=== PATIENT | male | born 1950 | race Caucasian/White ===

== ENCOUNTER 2019-07-01 13:05 | Inpatient (IN) | payer MEDICARE, SELFPAY ==
--- NOTE | ~2019-07-01 | MR_ITS ---
EXAMINATION: MR brain/brain stem wo/w con EXAM DATE: 07/02/2019 09:02 INDICATION: TECHNIQUE: Magnetic resonance imaging (MRI) of the brain/brain stem obtained without contrast. Sagit mitchell T1, axial diffusion, gradient echo (T2*), T1, T2, FLAIR sequences obtained. Patient was then inj ected with 16 cc intravenous Multihance contrast. Axial and coronal postcontrast T1 weighted sequence s obtained. Correlation is made to head CT from 07/01/2019. FINDINGS: There is small acute lacunar infarction in the left periventricular white matter, posterior limb of the internal capsule. There is moderate-sized old infarction in the right frontal lobe. Some dilated perivascular spaces. There is left choroidal fissure cyst. Mild microangiopathy and cerebral atrophy. There is no acute hemorrhage seen on the T2*, a hemosiderin sensitive sequence. No intrapa renchymal brain mass. The ventricles are normal in size. There are no extra-axial collections. Flow voids are seen in the cerebral arteries on the T2-weighted sequences consistent with their expected patency. The orbits are unremarkable. Soft tissue is unremarkable. There are no areas of abnormal enhancement on the postcontrast images. IMPRESSION: 1. Small acute left-sided lacunar infarction. 2. Moderate-sized old right frontal lobe infarction. 3. Mild age-related findings. Reviewed, dictated and finalized at location A. SECURITY
--- NOTE | ~2019-07-01 | CT_ITS ---
EXAMINATION: CT brain wo con DATE: 07/01/2019 13:29 INDICATION: Slurred speech. Right leg weakness. TECHNIQUE: Computed tomography (CT) of the head was performed without intravenous contrast. Sagittal and coronal reconstructions were performed. The mA was adjusted according to patient size. Iterative reconstruction technique was employed. The dose-length product was 605.33 mGy-cm. COMPARISON: None FINDINGS: Age-indeterminate small scalp hematoma at the vertex. No fracture. Small to moderate sized region of encephalomalacia in the right frontal lobe consistent with chronic infarct. No acute intracranial hem orrhage, acute infarction or abnormal extra axial fluid collection. Dominant Virchow-Gilson space at t he inferior aspect of the left basal ganglia. There is mild scattered white matter hypoattenuation co nsistent with chronic small vessel ischemic disease. Ventricles are normal and symmetric. No mass/ma ss effect. The orbits, paranasal sinuses and mastoid air cells are normal. Small amount of intracrani al calcified cerebral atherosclerosis is noted at the carotid siphons. IMPRESSION: 1. No acute intracranial process. 2. Small to moderate-sized chronic right frontal lobe infarct. 3. Mild scattered white matter hypoattenuation consistent with chronic small vessel ischemic disease. Reviewed, dictated and finalized at location A. EMIC GUIDANCE SPECIALIST IMPRESSION: 1. No acute intracranial process. 2. Small to moderate-sized chronic right frontal lobe infarct. 3. Mild scattered white matter hypoattenuation consistent with chronic small ve ssel ischemic disease.
--- NOTE | ~2019-07-01 | US_ITS ---
EXAMINATION: US carotid duplex BI DATE: 07/02/2019 09:39 INDICATION: Stroke with speech and language deficit and right hemiparesis and facial weakness. TECHNIQUE: Grayscale, color Doppler, and pulsed Doppler images of the cervical carotid arteries were obtained. The degree of vessel stenosis is placed in one of the following categories: normal, <50%, 5 0-69%, >=70% but less than near-occlusion, near-occlusion, or total occlusion. Note that percent sten osis relative to normal distal artery lumen diameter is indirectly measured from velocity measurement s as described by Deni, et al. Radiology 2003; 229:340-346. COMPARISON: None. FINDINGS: RIGHT: The right common carotid artery (CCA) peak systolic velocity (PSV) is 81 cm/s. The right internal car otid artery (ICA) PSV is 78 cm/s. The right ICA end-diastolic velocity (EDV) is 17 cm/s. The right IC A/CCA PSV ratio is 1.0. Grayscale and color Doppler images yield an estimate of <50% diameter reducti on from plaque in the ICA. The external carotid artery (ECA) PSV is 89 cm/s. There is antegrade flow in the right vertebral artery. LEFT: The left CCA PSV is 77 cm/s. The left ICA PSV is 106 cm/s. The left ICA EDV is 31 cm/s. The left ICA/ CCA PSV ratio is 1.4. Grayscale and color Doppler images yield an estimate of <50% diameter reduction from plaque in the ICA. The ECA PSV is 103 cm/s. There is antegrade flow in the left vertebral arter y. IMPRESSION: 1. <50% stenosis in the right internal carotid artery. 2. <50% stenosis in the left internal carotid artery. Reviewed, dictated and finalized at location A. ICIAN OFFICE SPECIALIST
--- NOTE | ~2019-07-01 | XR_ITS ---
XR chest 1V DATE: 07/01/2019 13:31 INDICATION: Slurred speech. Right leg weakness. TECHNIQUE: AP view COMPARISON: 08/25/2012 PA and lateral chest FINDINGS: Normal heart size. Aortic calcification. No hilar or mediastinal enlargement. No pulmonary infiltrate or consolidation, pleural effusion or pulmonary vascular congestion or pneumo thorax. Surgical clips overlie the right lower cervical area. Degenerative spurring of the thoracic spine. IMPRESSION: No active cardiopulmonary disease Reviewed, dictated and finalized at location B. ER ATTENDANT
--- NOTE | 2019-07-01 13:14 | ECG_ITS ---
Measurements Intervals [place] Rate: 76 P: 58 MI: 325 QRS: -34 QRSD: 110 T: 39 QT: 390 QTc: 440 Interpretive Statements SINUS RHYTHM WITH FIRST DEGREE AV BLOCK LEFT AXIS DEVIATION INCOMPLETE RIGHT BUNDLE BRANCH BLOCK CONSIDER INFERIOR INFARCT, AGE INDETERMINATE ABNORMAL ECG Electronically Signed On 07-01-2019 13:22:38 [facility] [employer] by Brooks Stauffer D.O.
[2019-07-01 13:23] VITALS: BP 187/74
--- NOTE | 2019-07-01 13:38 | ED.NEUROSD ---
HPI - Neuro Symptoms/Deficit General Chief Complaint: Weakness Stated Complaint: RIGHT SIDED WEAKNESS Time Seen by Provider: 07/01/19 13:20 History of Present Illness HPI Narrative: a 68 y/o male presents to the ED with c/o stroke-like symptoms that began yesterday afternoon. Pt states that he checked his BP and noticed that it was high, and was unsure if his machine was working correctly. He reports that his Sx began shortly after checking his BP. Pt notes having a sudden onset of rt sided weakness, slurred speech, thought he was having a stroke rt sided weakness slurred speech that began yesterday afternoon checked his BP and it was high and was unsure if his machine was worknig and then the sx followed they are the same as onset denies worsening 2am - spasms took 1/2 baby aspirin and went away generalized weakness in the ED can walk kept dropping soap with right hand and running into doorways DM, HTN, HLD, THYROID NO EMPHYSEMA, ASTHMA COPD, STROKE, TIA, GA BABY ASPIRIN NO SMOKING NO DRINKING states his walking was a little unsteady pt had a carotid artery scan done about a year ago Related Data Home Medications Medication Instructions Recorded Confirmed aspirin [Aspir-81] 07/01/19 canagliflozin [Invokana] mg 07/01/19 levothyroxine 07/01/19 losartan 07/01/19 metformin mg 07/01/19 simvastatin mg 07/01/19 sitagliptin [Januvia] mg 07/01/19 tamsulosin mg PO 07/01/19 Allergies Allergy/AdvReac Type Severity Reaction Status Date / Time No Known Allergies Allergy Verified 07/01/19 13:30 [facility] Social History Social History Gender identity (if verbalized by the patient): Male Exam Narrative: Exam Narrative: General appearance: Well-developed, well-nourished Skin: Normal color Head: Normocephalic, nontraumatic Eyes: Clear conjunctiva ENT: Oropharynx normal, ears normal, nose normal Neck: Supple, nontender Chest and respiratory: Airway patent, no respiratory distress, no accessory muscle use Heart: Regular rate/rhythm Abdomen: Soft, nontender, no organomegaly, quiet bowel sounds Vascular: Normal peripheral pulses, normal capillary refill. Musculoskeletal: Normal range of motion, nontender back Neurologic: Alert and oriented ?3, SENIOR MANAGER ASSET PROTECTION is normal as tested, no gross motor deficit Course Course Emergency Course: Unchanged Vital Signs Vital signs: Vital Signs Blood Pressure 187/74 H 07/01/19 13:23 Blood Pressure 187/74 H 07/01/19 13:23 MDM - Neuro Symptoms/Deficit MDM Narrative Medical decision making narrative: Patient presents with stroke symptoms, started yesterday noon, has been the same since. Patient had history of diabetes, hypertension, hyperlipidemia currently on aspirin. Does not smoke or drink. CVA is my concern. CT head, labs ordered. Further plan to follow. Differential Diagnosis Differential diagnosis: Likely cerebrovascular accident Lab Data Result diagrams: 07/01/19 13:48 07/01/19 13:48 Labs: Lab Results 07/01/19 07/01/19 07/01/19 Range/Units 13:44 13:48 13:48 WBC 8.6 (4.5-10.0) K/mm3 RBC 5.48 (4.6-6.20) M/mm3 Hgb 16.5 (14.0-18.0) g/dL Hct 49.3 (42.0-52.0) % MCV 90.0 (80-100) fl MCH 30.1 (26-34) pg MCHC 33.5 (32-36) g/dl RDW 13.0 (11.5-14.5) % Plt Count 184 (150-375) k/mm3 MPV 10.7 H (7.4-10.4) fl Immature Gran % (Auto) 0.2 (0-0.5) % Neut % (Auto) 73.7 H (45.5-73.1) % Lymph % (Auto) 16.4 L (18.3-44.2) % Holmes % (Auto) 7.2 (2.6-8.5) % Eos % (Auto) 1.9 (0-4.4) % Baso % (Auto) 0.6 (0.2-1.2) % Lymph # (Auto) 1.41 (0.9-3.2) K/mm3 Holmes # (Auto) 0.6 (0
[2019-07-01 13:46] LABS: Glucose Point of Care 155 (65-105)
[2019-07-01 13:58] LABS: Basophils Absolute Auto 0.1 K/mm3 (0.0-0.1); Basophils Percent Auto 0.6 % (0.2-1.2); Eosinophils Absolute Auto 0.2 K/mm3 (0-0.3); Eosinophils Percent Auto 1.9 % (0-4.4); Hematocrit 49.3 % (42.0-52.0); Hemoglobin 16.5 g/dL (14.0-18.0); Immature Granulocyte Absolute 0.02 K/mm3 (0.00-0.031); Immature Granulocyte Percent A 0.2 % (0-0.5); Lymphocytes Absolute Auto 1.41 K/mm3 (0.9-3.2); Lymphocytes Percent Auto 16.4 % (18.3-44.2); Mean Corpuscular HGB Conc 33.5 g/dl (32-36); Mean Corpuscular Hemoglobin 30.1 pg (26-34); Mean Platelet Volume 10.7 fl (7.4-10.4); Monocytes Absolute Auto 0.6 K/mm3 (0.1-0.6); Monocytes Percent Auto 7.2 % (2.6-8.5); Neutrophils Absolute Auto 6.3 K/mm3 (1.3-6.7); Neutrophils Percent Auto 73.7 % (45.5-73.1); Platelet Count Result 184 k/mm3 (150-375); Red Blood Count 5.48 M/mm3 (4.6-6.20); White Blood Count 8.6 K/mm3 (4.5-10.0)
[2019-07-01 14:05] LABS: INR 0.9; Prothrombin Time 12.1 Seconds (11.1-14.7)
[2019-07-01 14:06] LABS: Partial Thromboplastin Time 26.4 SECONDS (22.3-36.8)
[2019-07-01 14:10] LABS: Blood Urea Nitrogen 16 mg/dL (9-20); Calcium 9.9 mg/dL (8.4-10.2); Carbon Dioxide 26 mmol/L (22-30); Chloride 97 mmol/L (98-107); Estimated CRCL calculation 90 ml/min; Estimated Glomerular Filt Rate > 60; Glucose 182 mg/dL (75-110); Potassium 4.4 mmol/L (3.4-5.0); Sodium 141 mmol/L (137-145)
[2019-07-01 14:19] LABS: Troponin I < 0.012 ng/mL (0.000-0.034)
--- NOTE | 2019-07-01 15:21 | PC.NURSE ---
Called to give report and was told by Whitney that nurse will have to call me back because she is giving platelets.
[2019-07-01 16:00] VITALS: BP 147/72; PULSE 76; PULSE 78; RESP 20; TEMP 36.6; O2SAT 99
[2019-07-01 16:06] VITALS: BP 155/69; PULSE 70; RESP 18; O2SAT 94
--- NOTE | 2019-07-01 16:10 | PC.NURSE ---
This patient, Demian Warner, was admitted to 3 [facility] Surg Room 315-02. Patient/family oriented to hospital policies and general routines including ID bracelet, bed and alarms, visiting hours, pain management, procedures, bathroom and other care routines, personal items, smoking policy, room service/diet, and visiting hours. Valuables list has been completed. Information on how to activate the Rapid Response Team has been discussed. Patient/Family are encouraged to report perceived risks to care and to ask questions if they do not understand what they are told or what they should do.
[2019-07-01 16:25] VITALS: BMI 28.8
--- NOTE | 2019-07-01 16:37 | PC.NURSE ---
Lidia Rajan would prefer for patient to have bedside swallow study performed before ordering a diet. All speech therapist team members are gone for the day. Received orders to monitor patient while eating attempting a clear liquid then full liquid diet. Patient was able to tolerate clear and full liquid diet without any difficulty. No coughing or signs of aspiration while eating. Patient has been educated on aspiration precautions and instructed to sit up while eating.
[2019-07-01 20:00] VITALS: PULSE 77
[2019-07-01 21:57] LABS: Glucose Point of Care 160 (65-105)
[2019-07-01 22:00] VITALS: BP 170/70; PULSE 76; RESP 20; TEMP 36.6; O2SAT 96
[2019-07-02] VITALS (7 sets, daily range): BP systolic 139–147; BP diastolic 62–66; PULSE 70–86; RESP 18–20; TEMP 36.5–37.1; O2SAT 97
--- NOTE | 2019-07-02 | ECHO_ITS ---
Patient Info Name: Demian Warner Age: 68 years : 1950 Gender: Male Ht: 65 in Wt: 173 lbs BSA: 1.92 m2 HR: 85 bpm BP: 147 / 66 mmHg Heart Rhythm: Sinus Rhythm Technical Quality: Good Exam Date: 07/02/2019 2:42 PM Exam Location: [facility] Patient Status: Inpatient Admit Date: 07/01/2019 Staff Ordering Physician: Lidia Rajan NP Basting Marker: Bryce Cooper RDCS Attending Provider: Dmitry Castorena MD Referring Physician: Satinder TALBOT; Exam Type: CA echo dop bubble study w con Study Info Indications 436.0 - CVA Complete two-dimensional, color flow and Doppler transthoracic echocardiogram is performed with contrast to opacify the left ventrical and to improve the deliniation of the left ventrical endocarial boarders. Agitated saline study is performed. Contrast/Agitated Saline Contrast/Ag. Saline: Agitated Saline Amount: 18.00 ml Administered By: Hari Stoll RN Existing IV Access: Yes Contrast/Ag. Saline: Definity Amount: 2.00 ml Administered By: Hari Stoll RN Existing IV Access: Yes History/Risk Factors CVA; DM2, HTN. Summary 1. Normal left ventricular size with mild concentric hypertrophy. Left ventricular systolic function of the lower end of normal, EF 50-55% with no segmental wall motion abnormalities. Diastolic dysfunction grade 1 is present. 2. No evidence of intracardiac shunt during normal respiration and Valsalva by bubble study. 3. The mitral valve is thickened, and there is possibly a vibrating, mobile somewhat flat mass on the leaflet tips. Cannot rule out mitral valve vegetation. No mitral regurgitation. 4. Normal sinus rhythm. 5. Somewhat technically difficult study. Definity echo contrast used. 6. Consider transesophageal ECHO for further evaluation of the mitral valve. Left Ventricle Left ventricular chamber dimension is normal. Left ventricular systolic function is normal, estimated at 50-55%. There is moderately increased left ventricular wall thickness. Left ventricular septal wall motion is normal. The left ventricular diastolic function is grade I diastolic dysfunction. Normal left ventricular size with mild concentric hypertrophy. Left ventricular systolic function of the lower end of normal, EF 50-55% with no segmental wall motion abnormalities. Diastolic dysfunction grade 1 is present. Right Ventricle Right ventricular chamber dimension is normal. Right ventricular systolic function is normal. Left Atria Left atrial chamber dimension is normal. Right Atria Right atrial chamber dimension is normal. Aortic Valve The aortic valve is trileaflet. There is no aortic valve sclerosis. There is no aortic valve stenosis. There is no aortic valve regurgitation. Pulmonic Valve The pulmonic valve is normal. There is no pulmonic valve stenosis. There is no pulmonic regurgitation. Mitral Valve The mitral valve has thickened leaflets. There is no mitral valve stenosis. There is no mitral valve regurgitation. The mitral valve is thickened, and there is possibly a vibrating, mobile somewhat flat mass on the leaflet tips. Cannot rule out mitral valve vegetation. No mitral regurgitation. Tricuspid Valve The tricuspid valve leaflets are normal. There is no significant tricuspid valve stenosis. There is trace tricuspid valve regurgitation. Unable to assess pulmonary pressure.
--- NOTE | 2019-07-02 00:28 | PM.IMHP ---
H&P: HPI History of Present Illness Chief complaint: Acute CVA Narrative: Demian Warner is a 68 year old male who developed stroke-like symptoms yesterday afternoon. The patient has a left facial droop but his stated that is been there for a long time. The patient has been checking his blood pressure has been reading at high but he thought there was something wrong with his machine. His symptoms of right-sided weakness started briefly after he noticed his blood pressure was high yesterday. Today he kept dropping the soap in the bathroom shower and noticed he had right-sided weakness and slurred speech. His symptoms got worse today. He takes an aspirin at home. The patient stated he had not had a stroke in the past. Around 2:00 a.m. in the morning the patient took a half a baby tablets he was having some muscle spasms. The patient had relief of the spasms after the aspirin at 2:00 a.m.. The patient was walking without difficulty but was wearing off to the side and running in a door ways. His states that he was walks a little unsteady. He had a carotid artery scan about a year ago. CT of the head was read per radiology as 1. No acute intracranial process. 2. Small to moderate-sized chronic right frontal lobe infarct. 3. Mild scattered white matter hypoattenuation consistent with chronic small vessel ischemic disease. Neurology has been consulted. Date of service is 07/01/2019 Review of Systems Review of Systems: Narrative: Unsteady gait left facial droop right-sided weakness. No fever no chills. No visual problems. He is Ms. pronouncing words. Knee does some word searching. All systems reviewed & are unremarkable except as noted in HPI and below Constitutional: Constitutional: Reports as per HPI and Reports no additional constitutional complaints Eyes: Eyes: Reports as per HPI and Reports no additional eye complaints ENT: Reports system reviewed and no additional complaints, except as documented and Reports Normal hearing present Cardiovascular: Cardiovascular: Reports no additional cardiovascular complaints Respiratory: Respiratory: Reports no additional respiratory complaints and Reports no additional respiratory complaints Gastrointestinal: Gastrointestinal: Reports as per HPI and Reports no additional gastrointestinal complaints Musculoskeletal: Musculoskeletal: Reports no additional musculoskeletal complaints Integumentary/Breasts: Skin/Breast: Reports system reviewed and no additional complaints, except as docu and Reports as per HPI Neurologic: Reports system reviewed and no additional complaints, except as documented, Reports as per HPI and Reports Normal hearing present Psychiatric: Psychiatric: Reports no additional psychiatric complaints and Reports as per HPI Endocrine: Endocrine: Reports no additional endocrine complaints Hematologic/Lymphatic: Hematologic/Lymphatic: Reports no additional hematologic/lymphatic complaints Allergic/Immunologic: Allergic/Immunologic: Reports no additional allergic/immunologic complaints [facility] Past Medical History Medical History (Updated 07/02/19 @ 00:35 by Lidia Rajan NP) Asthma As a child BPH (benign prostatic hyperplasia) DM2 (diabetes mellitus, type 2) Hyperlipidemia Hypertension Hypothyroidism Thyroid cancer Thyroidectomy and radioactive iodine Surgical History Surgical History (Updated 07/02/19 @ 00:35 by Lidia Rajan NP) H/O thyroidectomy History of tonsillectomy Family History Family History Father Brain cancer Mother Dementia Diabetes mellitus Social History Social History (Updated 07/02/19 @ 00:37 by Lidia Rajan NP) Social History: Patient lives with his Julieta. She is his durable power district attorney for healthcare. Patient desires to be a full code. Patient quit smoking about 20 years ago. He has 2 boys. He is retired from [employer]. No alcohol or illici
[2019-07-02] MEDS: CANAGLIFLOZIN 100 MG TABLET 300 MG PO (05:52)
[2019-07-02] MEDS: LEVOTHYROXINE SODIUM 75 MCG TABLET PO (05:53)
[2019-07-02] MEDS: LEVOTHYROXINE SODIUM 100 MCG TABLET PO (05:53)
[2019-07-02 06:22] LABS: Basophils Percent Auto 0.4 % (0.2-1.2); Eosinophils Absolute Auto 0.1 K/mm3 (0-0.3); Eosinophils Percent Auto 1.9 % (0-4.4); Hematocrit 45.7 % (42.0-52.0); Immature Granulocyte Absolute 0.03 K/mm3 (0.00-0.031); Immature Granulocyte Percent A 0.4 % (0-0.5); Lymphocytes Absolute Auto 1.73 K/mm3 (0.9-3.2); Lymphocytes Percent Auto 23.2 % (18.3-44.2); Mean Corpuscular HGB Conc 32.8 g/dl (32-36); Mean Corpuscular Hemoglobin 29.9 pg (26-34); Mean Corpuscular Volume 91.2 fl (80-100); Mean Platelet Volume 11.5 fl (7.4-10.4); Monocytes Absolute Auto 0.7 K/mm3 (0.1-0.6); Monocytes Percent Auto 9.3 % (2.6-8.5); Neutrophils Absolute Auto 4.8 K/mm3 (1.3-6.7); Neutrophils Percent Auto 64.8 % (45.5-73.1); Platelet Count Result 175 k/mm3 (150-375); Red Blood Count 5.01 M/mm3 (4.6-6.20); Red Cell Distribution Width 13.4 % (11.5-14.5); White Blood Count 7.5 K/mm3 (4.5-10.0)
[2019-07-02 06:27] LABS: Alanine Aminotransferase 15 U/L (4-50); Albumin Level 4.8 g/dL (3.5-5.1); Alkaline Phosphatase 67 U/L (38-126); Aspartate Amino Transferase 17 U/L (17-59); Bilirubin,Total 0.5 mg/dL (0.2-1.3); Blood Urea Nitrogen 17 mg/dL (9-20); Calcium 9.4 mg/dL (8.4-10.2); Carbon Dioxide 25 mmol/L (22-30); Chloride 100 mmol/L (98-107); Estimated CRCL calculation 76 ml/min; Estimated Glomerular Filt Rate > 60; Glucose 138 mg/dL (75-110); Magnesium 2.1 mg/dL (1.6-2.3); Potassium 3.9 mmol/L (3.4-5.0); Sodium 141 mmol/L (137-145)
[2019-07-02 07:14] LABS: Thyroid Stimulating Hormone Reflex < 0.015 uIU/mL (0.465-4.68)
[2019-07-02 07:51] LABS: Glucose Point of Care 143 (65-105)
[2019-07-02 08:15] LABS: Hemoglobin A1C 7.8 % (<5.7)
[2019-07-02] MEDS: TAMSULOSIN HCL 0.4 MG CAPSULE PO (08:16)
[2019-07-02] MEDS: SIMVASTATIN 20 MG TABLET 40 MG PO (08:16)
[2019-07-02] MEDS: LOSARTAN POTASSIUM 100 MG TABLET PO (08:16)
--- NOTE | 2019-07-02 08:23 | PC.NURSE ---
To Radiology per [stretcher ]
--- NOTE | 2019-07-02 09:15 | PCOTNOTE ---
OT Evaluation attempted. Pt. off floor for MRI. Will assess patient when they return to room.
--- NOTE | 2019-07-02 09:20 | PCSTNOTE ---
Attempted ST eval this AM. Pt gone for MRI. Will re-attempt at a later time.
--- NOTE | 2019-07-02 10:25 | PC.NURSE ---
patient returned to room after US and MRI
--- NOTE | 2019-07-02 13:06 | CONS_ITS ---
DATE OF CONSULTATION: 07/01/2019 HISTORY OF PRESENT ILLNESS: A 68-year-old right-handed male admitted to [facility] through the emergency room with the complaints of left facial droop. In addition to the increased blood pressure, right-sided weakness with the specific information that he kept dropping the soap in the bathroom shower and he noted himself that he has slurred speech. The patient had been taking aspirin as a prophylactic and did take baby aspirin, but when he was walking, was veering off to the side and running in a doorways. His gait was unsteady. Initial CT scan in the emergency room revealed a [id number] size chronic right frontal lobe infarct with white matter hypoattenuation, consistent with chronic small vessel disease. REVIEW OF SYSTEM: Revealed him to have no other specific problem though in the past, he has a history of benign prostatic hyperplasia, type 2 diabetes mellitus, hyperlipidemia, hypertension, hypothyroidism, cancer of the thyroid for which he has undergone thyroidectomy and radioactive iodine treatment. SOCIAL HISTORY: He is a former smoker. Does not drink. MEDICATIONS: At the time of admission, he was taking 1. Aspirin 81 mg daily. 2. Invokana 300 mg daily. 3. Levothyroxine 175 mcg daily. 4. Losartan 100 mg daily. 5. Metformin 1000 mg twice a day. 6. Simvastatin 40 mg daily. 7. Sitagliptin 100 mg daily. 8. Tamsulosin 0.4 mg daily. ALLERGIES: HE IS NOT ALLERGIC TO ANY MEDICATION. PHYSICAL EXAMINATION: GENERAL: On examination, he was awake, alert, cooperative, in no obvious acute distress. HEENT: Head was normocephalic with no cranial bruit. Ear, nose, throat exam was normal. NECK: Supple with no cervical bruit. No thyromegaly. No lymphadenopathy. Range of motion was normal. CHEST: Clear with no crepitations or rhonchi. ABDOMEN: Soft with no organomegaly. Normal bowel sounds. NEUROLOGICAL: He was awake, alert, able to follow the verbal commands appropriately. His speech was not dysphasic, no dysarthric, not dysphonic. Pupils are round regular. [place]udero of vision full. Extraocular movements full. Face symmetrical. Tongue midline. Motor examination revealed him no drift against gravity. Reflexes symmetrical. Plantars downgoing. There was no evidence of gross sensory or cerebellar deficit. LABORATORY DATA: Evaluation up until now revealed normal CBC with WBC 8.6, hemoglobin 16.5, platelet count 184. Basic metabolic normal with creatinine of 0.7 and BUN of 16. Troponin less than 0.012. CT of the head done in the emergency room, which was with negative for the acute process. There was [id number] size chronic right frontal lobe infarct and mild scattered white matter hypoattenuation, consistent with chronic small-vessel ischemic disease. Carotid Doppler study less than 50% stenosis bilaterally. MRI of the brain shows small acute left-sided lacunar infarct with moderate-sized old right frontal lobe infarction as well. Chest x-ray negative and as mentioned above. Head CT scan was negative. At this stage, he is receiving all the medications, particularly aspirin 81 mg daily, antihypertensive losartan 100 mg daily, metformin 1000 mg twice a day, simvastatin 40 mg daily, sitagliptin 100 mg daily, and Tamsulosin 0.4 mg daily. IMPRESSION: Old stroke superimposed by the new lacunar stroke and also clinically his findings are suggestive of the early neuropathy, which could be with the secondary underlying diabetes, which can also complicate his gait staggering and gait dysfunction. Treatment will be continued as such. SHELLEY BRIGGS M.D. PATIENT FINANCIAL SPECIALIST PATIENT FINANCIAL SPECIALIST D Hilary Barclay
--- NOTE | 2019-07-02 13:42 | PM.DS ---
DS: Diagnosis Admitting Diagnosis Admitting Diagnosis: Cerebral infarction, unspecified Discharge Diagnosis (1) Acute cerebrovascular accident: Code(s): I63.9 - Cerebral infarction, unspecified Status: Chronic Assessment and Plan: Neurology has been consulted. Pt MRI shows- Small acute left-sided lacunar infarction and Moderate-sized old right frontal lobe infarction. US carotids are negative, ECHo report is pending. Pt started on aggrenox and will follow with neurology Dr Dumont. Pt speech is still slurred, states he strength in back in his legs. But appears little wobbly when he is asked to straighten his legs. Pt refusing PT/ OT/ST at home. Wants to strengthen is legs with his exercise bike. (2) Hypertension: Code(s): I10 - Essential (primary) hypertension Status: Chronic Assessment and Plan: Continue with losartan (3) Hyperlipidemia: Code(s): E78.5 - Hyperlipidemia, unspecified Status: Chronic Assessment and Plan: Continue with Zocor (4) BPH (benign prostatic hyperplasia): Code(s): N40.0 - Benign prostatic hyperplasia without lower urinary tract symptoms Status: Chronic Assessment and Plan: Continue with tamsulosin (5) Hypothyroidism: Code(s): E03.9 - Hypothyroidism, unspecified Status: Chronic Assessment and Plan: Continue with home dose of thyroid medicine (6) DM2 (diabetes mellitus, type 2): Code(s): E11.9 - Type 2 diabetes mellitus without complications Status: Chronic Assessment and Plan: Continue with Invokana and Januvia and metformin DS: Summary Time Spent with Patient Time attestation: Total time spent providing and/or coordinating discharge services:40 minutes on day of discharge Exam Narrative: Exam Narrative: Elderly man speech slightly slurred Chest: Chest palpation & inspection: normal inspection of the chest Resp: Effort & Inspection: normal respiratory effort Auscultation: clear to auscultation bilaterally Percussion: percussion normal Cardio: Palpation: normal PMI Rate: regular rate Rhythm: regular rhythm Heart sounds: S1 normal heart sound present and S2 normal heart sound present Peripheral pulses: Peripheral pulses 2+ throughout GI: Inspection: normal to inspection Auscultation: normal bowel sounds Neuro: General: oriented to person, oriented to place, oriented to time and patient oriented x3 Cranial nerves: Yes Equal, round and reactive pupils present and Yes Normal hearing present Cognition (Neuro): normal cognition Speech: Abnormal speech present slurred (At times) and Other speech findings present (Neuro) (Word searching) Gait exam (Neuro): Other gait observations present (legs are wobbly when asked to extend them ) Coordination: [id number] test normal, [id number] test normal, Normal rapid alternating movements of the distal upper extremity present (Neuro) and Normal rapid alternating movements of the distal lower extremity present (Neuro) Comatose Patient: corneal reflex present Extrem: General: normal to inspection Right upper extremity: normal to inspection and shoulder/upper arm Left upper extremity: normal to inspection and shoulder/upper arm Right lower extremity: normal to inspection Left lower extremity: normal to inspection DS: Data Data Completed and Pending Labs on day of discharge: Labs from last 24 hours 07/02/19 07/02/19 07/02/19 07:48 05:22 05:22 WBC RBC Hgb Hct MCV MCH MCHC RDW Plt Count MPV Immature Gran % (Auto) Neut % (Auto) Lymph % (Auto) [place] % (Auto) Eos % (Auto) Baso % (Auto) Lymph # (Auto) [place] # (Auto) Eos # (Auto) Baso # (Auto) Abs Immat Gran (auto) Absolute Neuts (auto) Absolute Nucleated RBC Nucleated RBC % PT INR APTT Sodium Potassium Chloride Carbon Dioxide BUN Creatinine Estim Creat Clear Calc E
[2019-07-02] MEDS: PERFLUTREN LIPID MICROSPHERES 1.5 ML VIAL DILUTED TO 10 ML TOTAL VOLUME IV PUSH (15:25)
[2019-07-02 15:56] LABS: Total Triiodothyronine (T3) 0.99 NG/ML (0.97-1.69)
[2019-07-02 18:54] LABS: Glucose Point of Care 155 (65-105)
== END 2019-07-02 17:20 | disposition home or self-care (01) | DRG 66 ==
LOC: ANHED 14:37 → ANH3MEDSUR 16:59
PROVIDERS: Nurse Practitioner; Admitting Provider Internal Medicine; Emergency Provider Emergency Medicine; PCP Internal Medicine; Visit Provider Family Medicine
DX: I63.81 Other cerebral infarction due to occlusion or stenosis of small artery (principal); Z79.82 Long term (current) use of aspirin; J45.909 Unspecified asthma, uncomplicated; N40.0 Benign prostatic hyperplasia without lower urinary tract symptoms; I10 Essential (primary) hypertension; E78.5 Hyperlipidemia, unspecified; Z85.850 Personal history of malignant neoplasm of thyroid; E89.0 Postprocedural hypothyroidism; Z87.891 Personal history of nicotine dependence; R29.702 NIHSS score 2; R29.810 Facial weakness; R47.81 Slurred speech; E11.40 Type 2 diabetes mellitus with diabetic neuropathy, unspecified; R26.0 Ataxic gait
CPT/HCPCS: 36415; 70450; 70553; 71045; 80048; 80053; 82948; 83036; 83735; 84439; 84443; 84480; 84484; 85025; 85610; 85730; 92523; 93005; 93880; 96375; 97161; 97165; 99285; A9270; A9577; C8929; Q9957

== ENCOUNTER 2019-07-09 00:45 | Day surgery (SDC) | payer MEDICARE, SELFPAY ==
[2019-07-09] VITALS (10 sets, daily range): BP systolic 142–179; BP diastolic 68–89; PULSE 65–70; RESP 10–16; TEMP 36.7; O2SAT 94–100
--- NOTE | 2019-07-09 07:53 | SUR.PREOP ---
0730-pt presents to the [facility] for a LIANNA. No distress noted. AOx4. PIV started. Questions answered and verbalized understanding. Consent signed. Will continue to monitor.
--- NOTE | 2019-07-09 08:59 | WPDMODSED ---
Moderate Sedation Note-Pt Data Patient Data Diagnosis: CVA, mitral valve mass Present Complaint: CVA, possible mitral valve mass Procedure to be performed/Plan: 1. Transesophageal echocardiogram with multiplanar imaging, bubble study, color flow and pulse wave Doppler 2. Moderate sedation Allergies Allergy/AdvReac Type Severity Reaction Status Date / Time No Known Allergies Allergy Verified 07/01/19 13:30 Home Medications Medication Instructions Recorded Confirmed Type Invokana 300 mg PO DAILY 07/01/19 07/09/19 History Januvia 100 mg PO DAILY 07/01/19 07/09/19 History levothyroxine 175 mcg PO DAILY 07/01/19 07/09/19 History losartan 100 mg PO DAILY 07/01/19 07/09/19 History metformin 1,000 mg PO BID 07/01/19 07/09/19 History simvastatin [Zocor] 40 mg PO DAILY 07/01/19 07/09/19 History tamsulosin 0.4 mg PO DAILY 07/01/19 07/09/19 History aspirin-dipyridamole [Aggrenox] 1 cap PO BID #90 cap 07/02/19 07/09/19 Rx Current Medications: Active Medications Sodium Chloride (Normal Saline Iv) 500 mls @ 500 mls/hr IV CONT .Q1H ONE Stop: 07/09/19 09:29 Sedation/Anesthesia: No previous sedation/anesthesia problems (including family history). [facility], [facility] Past Medical History Medical History Asthma As a child BPH (benign prostatic hyperplasia) DM2 (diabetes mellitus, type 2) Hyperlipidemia Hypertension Hypothyroidism Thyroid cancer Thyroidectomy and radioactive iodine Surgical History Surgical History H/O thyroidectomy History of tonsillectomy Family History Family History Father Brain cancer Mother Dementia Diabetes mellitus Social History Social History Social History: Patient lives with his Julieta. She is his durable power building service worker for healthcare. Patient desires to be a full code. Patient quit smoking about 20 years ago. He has 2 boys. He is retired from [employer]. No alcohol or illicit drugs. Patient tried marijuana when he was a teenager. Smoking status: Former smoker Alcohol intake: never Substance use type: former substance user and marijuana Other substance usage details: Tried marijuana as a teenager Additional occupation/education comments: For the last 2 years Gender identity (if verbalized by the patient): Male Spiritual care concerns: No Agree to blood products: Yes Mod Sed Physical Exam Physical Exam Pre Procedural Exam: Normal: Appearance, Eyes, Ears, Nose, Neck, Throat, Airway, Lungs, Heart Size, Heart Rate, Heart Rhythm, Abdomen, Extremities and Skin and Variation: Neuro Exam (Weakness noted with mild slurred speech) Hours since solid foods: 12 Hours since liquid intake: 12 Internal Medicine - PN: Obj Da Vital Signs Vital Signs: Vital Signs - 24 hr 07/09/19 07:52 Temperature 36.7 C Pulse Rate 69 Respiratory Rate 11 L Blood Pressure 164/71 H Pulse Oximetry 99 Meds/Results Medications: Active Medications Generic Name Dose Route Start Last Admin Trade Name Freq PRN Reason Stop Dose Admin Sodium Chloride 500 mls @ 500 mls/hr 07/09/19 08:30 Normal Saline Iv IV CONT 07/09/19 09:29 .Q1H ONE ASA Classification/Sedation ASA Classification/Sedation ASA Class: II Emergent: No Risks: Risks, benefits and alternatives explained and patient/family accepted plan for sedation. Patient re-evaluated immediately prior to sedation.
--- NOTE | 2019-07-09 09:32 | WPDTEECHO ---
[facility] TransEsophageal Echocardiogram Date of procedure: 07/09/19 Procedure Type: 1. Multi planar transesophageal echocardiography with color flow and pulse wave Doppler 2. Agitated saline study 3. Moderate sedation Diagnosis: CVA, mitral valve mass Indications: CVA, mitral valve mass Image Quality: Good Findings: After discussing the risks, benefits and alternatives of the procedure the patient agreeable via verbal and written informed consent. Risks discussed included esophageal rupture perforation, adverse reaction to anesthesia, bleeding, pain, infection, . After informed consent was signed and time-out was taken and after establishing continuous quality assurance monitor body, pulse oxygenation and serial blood pressure assessments sedation was initiated. Medications used for moderate sedation: Hurricaine spray to hypopharynx x2 for topical anesthetic. A total of 3 mg of Versed and 75 mcg of fentanyl given in divided dosages. Medications administered patient was monitored by Trinity Shepard RN Procedure start time 9:05 a.m. Procedure stop time 9:22 a.m. Complications: None Blood loss: None Findings: Normal left ventricular size and function with ejection fraction of 60 65%. Normal right ventricular size and function. There is no pericardial effusion. Normal left and right atrial sizes. Atrial septum is thin hypermobile and aneurysmal. Negative agitated saline study and negative color flow evidence of shunting. The aortic root is mildly enlarged measured 3.9 cm. The mitral valve is abnormal in appearance. The anterior leaflet does have a 1.3 by 0.9 cm mass. The posterior leaflet also appears to have a smaller hypermobility associated with it near the leaflet tips. There is associated mild mitral regurgitation. The tricuspid valve appears grossly normal with mild tricuspid regurgitation. The pulmonic valve is normal with mild pulmonic insufficiency. The aortic valve is trileaflet. There does appear to be a mass associated with the left coronary cusp also. This is less defined than the mitral valve mass but is estimated at 0.3 by 0.8 cm. There is trace to mild aortic insufficiency. Conclusions: 1. Normal left ventricular size and function 2. Aneurysmal atrial septum but without agitated saline or color flow evidence of shunting 3. 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 Aortic valve involvement also, consider vegetation consistent with endocarditis 5. Associated mitral regurgitation with trace to mild aortic insufficiency 6. Moderate sedation 7. Mild aortic root dilatation 8. Will draw blood cultures x2 today. Referred to Infectious Disease for treatment of endocarditis and also consider referral to CT surgery for further workup evaluation. 3D lopez may also be of some benefit.
--- NOTE | 2019-07-09 11:49 | SUR.PHASEII ---
1145-pt given D/C orders and instructions. CD of procedure given. Questions answered and verbalized understanding. PIV removed intact. Taken via wheelchair to waiting vehicle. No distress noted or verbalized at time of departure.
== END 2019-07-09 11:45 | disposition home or self-care (01) ==
PROVIDERS: PCP Internal Medicine; Visit Provider Internal Medicine Cardiovascular Disease
PROC: (CPT 93312; principal; 2019-07-09 08:30)
DX: I25.3 Aneurysm of heart (principal); R93.1 Abnormal findings on diagnostic imaging of heart and coronary circulation; I34.0 Nonrheumatic mitral (valve) insufficiency; Z86.73 Personal history of transient ischemic attack (TIA), and cerebral infarction without residual deficits; I10 Essential (primary) hypertension; E78.00 Pure hypercholesterolemia, unspecified; E78.5 Hyperlipidemia, unspecified; E11.9 Type 2 diabetes mellitus without complications; N40.0 Benign prostatic hyperplasia without lower urinary tract symptoms; E89.0 Postprocedural hypothyroidism; Z87.891 Personal history of nicotine dependence; Z79.82 Long term (current) use of aspirin; Z79.84 Long term (current) use of oral hypoglycemic drugs; Z85.850 Personal history of malignant neoplasm of thyroid; Z79.02 Long term (current) use of antithrombotics/antiplatelets
CPT/HCPCS: 87040; 93312; 93320; 93325; J2250; J3010; J7040

== ENCOUNTER 2019-12-19 11:07 | Outpatient (CLI) | payer MEDICARE, SELFPAY ==
--- NOTE | ~2019-12-19 | XR_ITS ---
XR chest 2V DATE: 12/19/2019 11:24 INDICATION: Shortness of breath TECHNIQUE: PA and lateral views COMPARISON: 07/01/2019 AP chest FINDINGS: Cardiomegaly. Status post sternotomy and cardiac valve replacement, likely mitral valve. Left-sided dual-lead pacemaker device with leads overlying right atrium and right ventricle. No pulmonary infiltrate or consolidation, pleural effusion or pulmonary vascular congestion or pneumo thorax is detected. Degenerative spurring of the thoracic spine. IMPRESSION: Cardiomegaly Status post sternotomy and cardiac valve replacement Left-sided dual-lead pacemaker No active pulmonary disease Reviewed, dictated and finalized at location A.
== END 2019-12-19 11:08 | disposition home or self-care (01) ==
PROVIDERS: PCP Internal Medicine; Visit Provider Internal Medicine Cardiovascular Disease
DX: R06.02 Shortness of breath (principal); I51.7 Cardiomegaly; Z98.890 Other specified postprocedural states; Z95.2 Presence of prosthetic heart valve; Z95.0 Presence of cardiac pacemaker
CPT/HCPCS: 71046

== ENCOUNTER 2020-01-12 07:30 | Outpatient (RCR) | payer MEDICARE, SELFPAY ==
[2019-11-28 11:13] VITALS: BP 120/80; PULSE 92; RESP 16; TEMP 36.7; O2SAT 97
--- NOTE | 2020-01-13 15:45 | PCCPR ---
Darius Garg called states he had a heart scan and was told on a message not to go to exercise class. He has not spoken to his MD to know what was seen on the scan. He will let us know once he hears from Dr Mueller.
--- NOTE | 2020-01-15 08:03 | PCCPR ---
Forest's called this morning and stated that Forest is now admitted to [facility] with CHF, his EF is 10%. Ask his that she keep us informed as to his plans to return but may have to put him on hold.
--- NOTE | 2020-01-21 09:47 | PCCPR ---
Addendum entered by Claudine Cabrera RN 02/23/20 10:19: Message left for Forest requesting he give us a call with an update of his condition and plan for return. Original Note: Hospitalized Forest has been off for increased SOB with walking and CHF. He left us a msg he was out of the hospital and doing better however would not be able to resume for 6 weeks. Called him to clarify his plan for return or dc. States his pacemaker was upgraded to one with ICD. He had many tests and states he was told his heart valves were functioning properly. States they told him he was fluid overloaded. He lost 20 lbs in while in the hospital. He is to see one of his 3 Cardiologists in apx 1 week. Asked if he could call and update us on his progress. He currently has up to 16 sessions left. Explained we would then decide on remaining hold vs dc. Forest expressed desire to continue once he is released per one of his MD's.
--- NOTE | 2020-02-23 18:21 | PCCPR ---
Forest returned call-He is interested in returning to cardiac rehab but they are now worried about a possible infection to his incision where ICD was placed. They have not released him to return yet.
--- NOTE | 2020-03-25 11:14 | PCCPR ---
Message left for Bill to check on his recovery and plan for return.
--- NOTE | 2020-03-29 11:59 | PCCPR ---
Addendum entered by Ilene Vasquez 04/12/20 08:12: Order to return faxed to Dr. Delgado on 03/29 Original Note: Pt stopped in to facility asking how to come back to [facility]. Discussed getting release from Danny/Ami about return to [facility]. Pt also states has kidney stones and has procedure scheduled for Sun04/02/20; discussed getting release and follow up on Sunday with update on status of returning from kidney stones.
--- NOTE | 2020-04-12 08:12 | PCCPR ---
Called and spoke to pt . Pt had ICD moved to right side due to infection not healing. Pt will remain on hold for another 6-8wks.
--- NOTE | 2020-05-26 13:24 | PCCPR ---
Left a message on Bill's home phone requesting an update on his ability to resume Cardiopulmonary rehab.
--- NOTE | 2020-05-31 14:15 | PCCPR ---
Addendum entered by Claudine Cabrera RN 06/14/20 10:52: Forest returned our call. States he is feeling better and his wound vac has been off a couple of weeks. He is starting to ride his [employer] bike at home now. He asked what he would need to do to return to rehab. Chart had release from Dr Delgado from Mar 2020. Requested he get a release from Dr Mueller or Polina COOK. Explained we would return call to him once we recieve a release. Addendum entered by Claudine Cabrera RN 06/14/20 08:14: for Forest to give us an update on his condition or plans for return. Original Note: Continued PETRONA Extended call last week to Forest inquiring his plan for return. States he got his wound vac off however still healing. States he will plan to call us when he is ready for return.
== END 2020-01-12 23:59 | disposition home or self-care (01) ==
LOC: ANHCPREHAB 07:30
PROVIDERS: PCP Internal Medicine; Visit Provider Internal Medicine Cardiovascular Disease
DX: Z95.2 Presence of prosthetic heart valve (principal)
CPT/HCPCS: 93798

== ENCOUNTER 2020-03-25 07:28 | Day surgery (SDC) | payer MEDICARE, SELFPAY ==
[2020-03-25] VITALS (7 sets, daily range): BP systolic 100–134; BP diastolic 61–77; PULSE 68–95; RESP 12–20; TEMP 36.7–36.8; O2SAT 99–100
--- NOTE | ~2020-03-25 | XR_ITS ---
EXAMINATION: XR retrograde pyelo w/stent LT DATE: 03/25/2020 12:25 INDICATION: Left ureteral stone. TECHNIQUE: 60 intraoperative fluoroscopic views of the abdomen and pelvis were obtained. I was not pr esent. Fluoroscopy exposure time was 30 seconds. COMPARISON: CT abdomen and pelvis 03/25/2020 FINDINGS: The left-sided retrograde pyelogram demonstrates a stone in the proximal left ureter. The f inal images demonstrate a left internal ureteral stent in expected position. IMPRESSION: 1. Stone in the proximal left ureter. 2. Left internal ureteral stent in expected position. Reviewed, dictated and finalized at location B. IOVASCULAR RN
--- NOTE | ~2020-03-25 | CT_ITS ---
EXAMINATION: CT abdomen pelvis w con DATE: 03/25/2020 09:02 INDICATION: Left flank pain. TECHNIQUE: Computed tomography (CT) of the abdomen and pelvis was performed with 100 mL Omnipaque 350 intravenous contrast. Automated exposure control and iterative reconstruction technique were employe d. The dose-length product was 520.97 mGy-cm. COMPARISON: None. FINDINGS: The visualized portions of the lung bases demonstrate mild atelectasis. A calcified left leona ng nodule is consistent with old granulomatous disease. No pleural effusion. Cardiomegaly is noted. T here are changes of aortic valve replacement. There are coronary artery calcifications. There are pac er wires in right atrium, right ventricle, and coronary sinus. No pericardial effusion. There is bila teral gynecomastia. There is a 9 mm hyperenhancing mass in the liver, likely a hemangioma or focal no dular hyperplasia. The gallbladder, spleen, and adrenal glands are normal. There are calcifications i n the pancreas, consistent with chronic pancreatitis. There are three 1-2 mm stones in right kidney. There are 1 mm and 3 mm stones in left kidney. There is mild left hydronephrosis. There is an [address] one in proximal left ureter. The prostate is moderately enlarged. There is diverticulosis of the colo n without evidence of diverticulitis. The appendix is normal. There are no pathologically enlarged ly mph nodes. There is no free intraperitoneal fluid. There is severe lumbar spondylosis. A hemangioma a nd a benign bone island are noted in L3 vertebral body. There is a 1.7 cm sclerotic lesion in left il ium. There is a 6 mm sclerotic lesion in L4 vertebral body. IMPRESSION: 1. 8 mm stone in proximal left ureter with mild left hydronephrosis. 2. Small bilateral nonobstructing kidney stones. 3. Sclerotic lesions of bone, which may be benign or less likely metastatic disease. Consider bone sc an. Reviewed, dictated and finalized at location B. CATCHER IMPRESSION: 1. 8 mm stone in proximal left ureter with mild left hydronephrosis. 2. Small bilateral nonobstructing kidney stones. 3. Sclerotic lesions of bone, which may be benign or less likely metastatic dis ease. Consider bone scan.
[2020-03-25 07:48] LABS: Basophils Percent Auto 0.2 % (0.2-1.2); Eosinophils Percent Auto 0.2 % (0-4.4); Hematocrit 47.1 % (42.0-52.0); Hemoglobin 14.9 g/dL (14.0-18.0); Immature Granulocyte Absolute 0.04 K/mm3 (0.00-0.031); Immature Granulocyte Percent A 0.3 % (0-0.5); Lymphocytes Percent Auto 6.2 % (18.3-44.2); Mean Corpuscular HGB Conc 31.6 g/dl (32-36); Mean Corpuscular Hemoglobin 28.3 pg (26-34); Mean Corpuscular Volume 89.5 fl (80-100); Mean Platelet Volume 10.2 fl (7.4-10.4); Monocytes Absolute Auto 0.9 K/mm3 (0.1-0.6); Monocytes Percent Auto 6.6 % (2.6-8.5); Neutrophils Absolute Auto 11.1 K/mm3 (1.3-6.7); Neutrophils Percent Auto 86.5 % (45.5-73.1); Platelet Count Result 171 k/mm3 (150-375); Red Blood Count 5.26 M/mm3 (4.6-6.20); Red Cell Distribution Width 18.6 % (11.5-14.5); White Blood Count 12.8 K/mm3 (4.5-10.0)
[2020-03-25 07:59] LABS: Anion Gap 15 mmol/L (8-16); Blood Urea Nitrogen 42 mg/dL (9-20); Calcium 9.8 mg/dL (8.4-10.2); Carbon Dioxide 27 mmol/L (22-30); Chloride 98 mmol/L (98-107); Estimated CRCL calculation 51 ml/min; Estimated Glomerular Filt Rate 55; Glucose 215 mg/dL (75-110); Sodium 140 mmol/L (137-145)
--- NOTE | 2020-03-25 08:26 | PC.NURSE ---
PT AWARE OF NEED FOR UA, STATES I THOUGHT I COULD GO BUT I CAN'T REFUSING CATH, WILL ATTEMPT JOHN.
--- NOTE | 2020-03-25 08:43 | ED.GENADULT ---
HPI - General Adult General Chief complaint: Back Pain/Injury Stated complaint: low back pain Time Seen by Provider: 03/25/20 08:41 Source: patient and family Mode of arrival: ambulatory Limitations: no limitations History of Present Illness HPI narrative: Patient is 69 years old white male presents with left flank pain radiating to left lower quadrant started last night. Constant, associated with nausea and intermittent vomiting. No history of kidney stone. Patient denies any fever, chills, aggravating or relieving factors. Patient's is on baby aspirin Related Data Home Medications Medication Instructions Recorded Confirmed Invokana 300 mg PO DAILY 07/01/19 11/28/19 Januvia 100 mg PO DAILY 07/01/19 11/28/19 levothyroxine 175 mcg PO DAILY 07/01/19 11/28/19 metformin 1,000 mg PO BID 07/01/19 07/09/19 aspirin 325 mg PO DAILY 11/28/19 11/28/19 cholecalciferol (vitamin D3) 2,000 mg BYMOUTH DAILY 11/28/19 11/28/19 atorvastatin 40 mg PO HS 03/25/20 bumetanide 1 mg PO DAILY 03/25/20 carvedilol 3.125 mg PO BID 03/25/20 losartan 25 mg PO DAILY 03/25/20 potassium chloride 10 meq PO DAILY 03/25/20 spironolactone 25 mg PO DAILY 03/25/20 Allergies Allergy/AdvReac Type Severity Reaction Status Date / Time No Known Allergies Allergy Verified 07/01/19 13:30 Review of Systems Review of Systems: Narrative: CONSTITUTIONAL: Denies fever, chills, or sweats. EYES: Denies visual changes, redness, or discharge. ENT: Denies rhinorrhea, congestion, sore throat, or otalgia. CARDIOVASCULAR: Denies chest pain, palpitations, or edema. RESPIRATORY: Denies cough or dyspnea. GASTROINTESTINAL: Denies abdominal pain, nausea, vomiting, or diarrhea. GENITOURINARY: Denies dysuria or hematuria. SKIN: Denies rash or itching. MUSCULOSKELETAL: Denies back pain, joint pain, or myalgia. NEUROLOGIC: Denies headache, numbness, or weakness. PSYCHIATRIC: Denies anxiety or depression. [facility] Past Medical History Medical History (Updated 03/25/20 @ 11:13 by Background Daemon) Asthma As a child BPH (benign prostatic hyperplasia) DM2 (diabetes mellitus, type 2) Hyperlipidemia Hypertension Hypothyroidism Thyroid cancer Thyroidectomy and radioactive iodine Surgical History Surgical History H/O thyroidectomy History of tonsillectomy Family History Family History Father Brain cancer Mother Diabetes mellitus Dementia Colon cancer Social History Social History Social History: Patient lives with his Julieta. She is his durable power medical director/head team physician for healthcare. Patient desires to be a full code. Patient quit smoking about 20 years ago. He has 2 boys. He is retired from [employer] No alcohol or illicit drugs. Patient tried marijuana when he was a teenager. Smoking packs per day: 1 Smoking cigarettes per day: 20.0 Years smoked: 20 Smoking pack-years: 20.00 Smoking status: Former smoker Tobacco type: cigarettes Second hand tobacco smoke exposure: No Alcohol intake: never Substance use type: former substance user and marijuana Other substance usage details: Tried marijuana as a teenager Additional occupation/education comments: For the last 2 years Gender identity (if verbalized by the patient): Male Spiritual care concerns: No Agree to blood products: Yes Exam Narrative: Exam Narrative: General appearance: Well-developed, well-nourished Skin: Normal color Head: Normocephalic, nontraumatic Eyes: Clear conjunctiva ENT: Oropharynx normal, ears normal, nose normal Neck: Supple, nontender Chest and respiratory: Airway patent, no respiratory distress, no accessory muscle use Heart: Regular rate/rhythm Abdomen: Soft, moderate tenderness left flank, otherwise benign. Vascular: Normal peripheral pulses, normal capillary refill. Musculoskele
[2020-03-25] MEDS: MORPHINE SULFATE (*CRX) 4 MG/ML INJ IV PUSH (08:48)
[2020-03-25] MEDS: ONDANSETRON INJ 4 MG/2 ML VIAL IV PUSH (08:48)
[2020-03-25] MEDS: SODIUM CHLORIDE 0.9% IV 1,000 ML 999 ML IV CONT (08:49)
--- NOTE | 2020-03-25 09:00 | PC.NURSE ---
PT UNABLE TO GIVE UA AT THIS TIME, REFUSING CATH.
[2020-03-25 09:45] LABS: Lipase 39 U/L (23-300)
--- NOTE | 2020-03-25 09:55 | PC.NURSE ---
PT UNABLE TO GIVE UA AT THIS TIME, REFUSING CATH.
--- NOTE | 2020-03-25 10:42 | PM.HPGS ---
History of Present Illness History of Present Illness Consent: Risks, benefits, and alternatives have been discussed and questions answered. Patient agrees to proceed with procedure. Chief complaint: low back pain Narrative: Demian Warner is a 69 year old male Without prior significant urological history, and without history of urolithiasis, presents to the ER acute left flank pain radiating to his left lower quadrant that was associated with nausea and vomiting. He has had no fevers chills or gross hematuria. CT scan of the abdomen and pelvis reveals an obstructing 8 mm left proximal ureteral stone. We discussed options including lithotripsy, endoscopic manipulation and we have agreed on the former. We will place ureteral stent today and make plans for outpatient ESWL down the road. Review of Systems Cardiovascular: Cardiovascular: Denies chest pain, Denies lightheadedness, Denies palpitations and Denies dyspnea Respiratory: Respiratory: Denies dyspnea Gastrointestinal: Gastrointestinal: Denies diarrhea, Denies nausea and Denies vomiting Genitourinary: Genitourinary: Denies hematuria and Denies dysuria Endocrine: Endocrine: Denies palpitations PMFSH Past Medical History Medical History (Updated 03/25/20 @ 10:44 by Jayy Brown MD) Asthma As a child BPH (benign prostatic hyperplasia) DM2 (diabetes mellitus, type 2) Hyperlipidemia Hypertension Hypothyroidism Thyroid cancer Thyroidectomy and radioactive iodine Surgical History Surgical History H/O thyroidectomy History of tonsillectomy Family History Family History Father Brain cancer Mother Diabetes mellitus Dementia Colon cancer Social History Social History Social History: Patient lives with his Julieta. She is his durable power county attorney for healthcare. Patient desires to be a full code. Patient quit smoking about 20 years ago. He has 2 boys. He is retired from [employer]. No alcohol or illicit drugs. Patient tried marijuana when he was a teenager. Smoking packs per day: 1 Smoking cigarettes per day: 20.0 Years smoked: 20 Smoking pack-years: 20.00 Smoking status: Former smoker Tobacco type: cigarettes Second hand tobacco smoke exposure: No Alcohol intake: never Substance use type: former substance user and marijuana Other substance usage details: Tried marijuana as a teenager Additional occupation/education comments: For the last 2 years Gender identity (if verbalized by the patient): Male Spiritual care concerns: No Agree to blood products: Yes Meds Home Medications and Allergies Home Medications Medication Instructions Recorded Confirmed Type Invokana 300 mg PO DAILY 07/01/19 11/28/19 History Januvia 100 mg PO DAILY 07/01/19 11/28/19 History levothyroxine 175 mcg PO DAILY 07/01/19 11/28/19 History metformin 1,000 mg PO BID 07/01/19 07/09/19 History aspirin 325 mg PO DAILY 11/28/19 11/28/19 History cholecalciferol (vitamin D3) 2,000 mg BYMOUTH DAILY 11/28/19 11/28/19 History atorvastatin 40 mg PO HS 03/25/20 History bumetanide 1 mg PO DAILY 03/25/20 History carvedilol 3.125 mg PO BID 03/25/20 History losartan 25 mg PO DAILY 03/25/20 History potassium chloride 10 meq PO DAILY 03/25/20 History spironolactone 25 mg PO DAILY 03/25/20 History Allergies Allergy/AdvReac Type Severity Reaction Status Date / Time No Known Allergies Allergy Verified 07/01/19 13:30 Vital Signs Vital Signs - 24 hr 03/25/20 07:35 03/25/20 10:12 Temperature 98.0 F Pulse Rate 95 80 Respiratory Rate 20 16 Blood Pressure 121/77 123/62 Pulse Oximetry 100 100 Exam Const: General: no acute distress Resp: Effort & Inspection: normal respiratory effort GI: Inspection: non-distended GI Palp: No abdominal tenderness and N
[2020-03-25 10:52] LABS: Add Urine Microscopic? YES; Appearance Urine Clear (Clear); Bilirubin Urine Negative (Negative); Blood Urine 3+ (Negative); Color Urine Straw (Yellow); Glucose Urine UA 3+ mg/dL (Negative); Ketones Urine 1+ mg/dL (Negative); Leukocyte Esterase Ur Negative LEU/UL (Negative); Mucus Urine Rare /lpf; Nitrate Urine Negative (Negative); Protein Urine 1+ mg/dL (Negative); RBC Urine 21-50 /hpf (0-2); Urobilinogen Urine Negative mg/dL (<2.0); WBC Urine 0-3 /hpf
[2020-03-25 10:55] LABS: Specific Grav Ur 1.038 (1.001-1.035)
--- NOTE | 2020-03-25 11:24 | WPDANESEPPF ---
Anes - Initial Pre Proc Eval Procedure: Operation Date: 03/25/20 13:00 Proposed Procedures p Cystoscopy, Left Stent Placement - Jayy Brown MD Date/Time: 03/25/20 11:24 Surgeon: Jayy Brown MD Pre Op Diagnosis: low back pain Patient Data Age: 69 Gender: M Height: 5 ft 11 in Weight: 79 kg Last Vital Signs Temp 36.7 C 03/25/20 07:35 Pulse 68 03/25/20 11:09 Resp 16 03/25/20 11:09 BP 134/75 03/25/20 11:09 Pulse Ox 99 03/25/20 11:09 Allergies Allergy/AdvReac Type Severity Reaction Status Date / Time No Known Allergies Allergy Verified 07/01/19 13:30 Home Medications Medication Instructions Recorded Confirmed Type Invokana 300 mg PO DAILY 07/01/19 11/28/19 History Januvia 100 mg PO DAILY 07/01/19 11/28/19 History levothyroxine 175 mcg PO DAILY 07/01/19 11/28/19 History metformin 1,000 mg PO BID 07/01/19 07/09/19 History aspirin 325 mg PO DAILY 11/28/19 11/28/19 History cholecalciferol (vitamin D3) 2,000 mg BYMOUTH DAILY 11/28/19 11/28/19 History atorvastatin 40 mg PO HS 03/25/20 History bumetanide 1 mg PO DAILY 03/25/20 History carvedilol 3.125 mg PO BID 03/25/20 History losartan 25 mg PO DAILY 03/25/20 History potassium chloride 10 meq PO DAILY 03/25/20 History spironolactone 25 mg PO DAILY 03/25/20 History Laboratory Tests 03/25/20 03/25/20 03/25/20 07:42 07:42 07:42 WBC 12.8 K/mm3 H K/mm3 (4.5-10.0) RBC 5.26 M/mm3 M/mm3 (4.6-6.20) Hgb 14.9 g/dL g/dL (14.0-18.0) Hct 47.1 % % (42.0-52.0) MCV 89.5 fl fl (80-100) MCH 28.3 pg pg (26-34) MCHC 31.6 g/dl L g/dl (32-36) RDW 18.6 % H % (11.5-14.5) Plt Count 171 k/mm3 k/mm3 (150-375) MPV 10.2 fl fl (7.4-10.4) Immature Gran % (Auto) 0.3 % % (0-0.5) Neut % (Auto) 86.5 % H % (45.5-73.1) Lymph % (Auto) 6.2 % L % (18.3-44.2) [place] % (Auto) 6.6 % % (2.6-8.5) Eos % (Auto) 0.2 % % (0-4.4) Baso % (Auto) 0.2 % % (0.2-1.2) Lymph # (Auto) 0.80 K/mm3 L K/mm3 (0.9-3.2) [place] # (Auto) 0.9 K/mm3 H K/mm3 (0.1-0.6) Eos # (Auto) 0.0 K/mm3 K/mm3 (0-0.3) Baso # (Auto) 0.0 K/mm3 K/mm3 (0.0-0.1) Abs Immat Gran (auto) 0.04 K/mm3 H K/mm3 (0.00-0.031) Absolute Neuts (auto) 11.1 K/mm3 H K/mm3 (1.3-6.7) Absolute Nucleated RBC 0.0 K/mm3 K/mm3 (0.0-0.012) Nucleated RBC % 0.0 % % (0.0-0.2) Sodium 140 mmol/L mmol/L (137-145) Potassium 5.0 mmol/L mmol/L (3.4-5.0) Chloride 98 mmol/L mmol/L (98-107) Carbon Dioxide 27 mmol/L mmol/L (22-30) Anion Gap 15 mmol/L mmol/L (8-16) BUN 42 mg/dL H D mg/dL (9-20) Creatinine 1.30 mg/dL mg/dL (0.7-1.3) Estim Creat Clear Calc 51 ml/min ml/min Estimated GFR 55 L (59 - ) Glucose 215 mg/dL H mg/dL (75-110) Calcium 9.8 mg/dL mg/dL (8.4-10.2) Lipase 39 U/L U/L (23-300) Urine Color Urine Appearance Urine pH Ur Specific [place] Urine Protein Urine Glucose (UA) Urine Ketones Ur Blood (Man) Urine Nitrate Urine Bilirubin Urine Urobilinogen Leukocyte Esterase Rfl Urine RBC Urine WBC Urine Mucus 03/25/20 10:21 WBC RBC Hgb Hct MCV MCH MCHC RDW Plt Count MPV Immature Gran % (Auto) Neut % (Auto) Lymph % (Auto) [place] % (Auto) Eos % (Auto) Baso % (Auto) Lymph # (Auto) [place] # (Auto) Eos # (Auto) Baso # (Auto) Abs Immat Gran (auto) Absolute Neuts (auto) Absolute Nucleated RBC Nu
--- NOTE | 2020-03-25 11:33 | ECG_ITS ---
Measurements Intervals [place] Rate: 78 P: 47 [place]: 177 QRS: -81 QRSD: 186 T: 40 QT: 463 QTc: 529 Interpretive Statements ATRIAL SENSE- ELECTRONIC VENTRICULAR PACEMAKER NO FURTHER INTERPRETATION IS POSSIBLE ATYPICAL ECG Electronically Signed On 03-25-2020 14:47:12 SCHOOL DIRECTOR by Brooks Stauffer D.O.
[2020-03-25] MEDS: LACTATED RINGERS 1,000 ML 30 ML IV CONT (11:45)
[2020-03-25] MEDS: ceFAZolin 2 GM/D5W 50 ML 2 GM/50 ML BAG IVPB (12:08)
--- NOTE | 2020-03-25 12:15 | PM.PROC ---
Procedure Note - Detailed Date of procedure: 03/25/20 Pre-op diagnosis: low back pain Post-op diagnosis: same Procedure performed: Cystoscopy, left retrograde pyelography and left ureteral stent placement Description of procedure: The patient was brought to the operative suite where he was prepped and draped in a routine sterile fashion while in the dorsal lithotomy position. A 19 F rigid cystoscope was placed in her bladder and the bladder was circumferentially inspected. There were no urethral strictures. The prostatic urethral estimated length was 2cm. There was mild obstruction of the prostatic urethra with no median lobe. The bladder mucosa was without hyperemia. There was no intravesical foreign body or neoplasm. There was a single orthotopic ureteral orifice bilaterally. I advanced .035 glidewire into the renal pelvis under fluoroscopy number retrograde pyelogram was obtained via a angiographic catheter to outline the collecting system. There was no apparent obstruction of the ureter, other than his calcified proximal ureteral stone. There were no apparent filling defects, other than the stone.. A 4.8F variable length ureteral stent was positioned with the proximal coil in the renal pelvis and the distal coil in the bladder. Scopes and wires were removed after emptying the patient's bladder. Anesthesia: MAC Surgeon: Jayy Brown MD Estimated blood loss (mL): 0 Drains: Yes (4/8F left ureteral stent) Packing: No Pathology: none sent Complications: No immediate complications Condition: stable Disposition: PACU
[2020-03-25 12:29] LABS: Glucose Point of Care 161 (65-105)
== END 2020-03-25 13:12 | disposition home or self-care (01) ==
LOC: ANHED 10:48 → ANHSURGERY 11:13
PROVIDERS: Emergency Provider Emergency Medicine; PCP Internal Medicine; Visit Provider Urology
PROC: (CPT 52352; principal; 2020-03-25 13:00)
DX: N20.1 Calculus of ureter (principal); E11.9 Type 2 diabetes mellitus without complications; E78.5 Hyperlipidemia, unspecified; E89.0 Postprocedural hypothyroidism; N40.0 Benign prostatic hyperplasia without lower urinary tract symptoms; Z79.84 Long term (current) use of oral hypoglycemic drugs; Z79.82 Long term (current) use of aspirin; Z85.850 Personal history of malignant neoplasm of thyroid; Z87.891 Personal history of nicotine dependence
CPT/HCPCS: 52332; 36415; 74177; 74420; 80048; 81001; 83690; 85025; 93005; 96361; 96374; 96375; 99285; A9270; C1769; C1887; C2617; J0690; J2270; J2405; J2704; J7030; J7120; Q9966; Q9967

== ENCOUNTER 2020-03-29 11:33 | Outpatient (CLI) | payer MEDICARE, SELFPAY ==
[2020-03-29 12:13] LABS: INR 0.9; Partial Thromboplastin Time 28.2 SECONDS (22.3-36.8); Prothrombin Time 12.9 Seconds (11.1-14.7)
== END 2020-03-29 11:34 | disposition home or self-care (01) ==
LOC: ANHSURGERY 11:34
PROVIDERS: PCP Internal Medicine; Visit Provider Urology
DX: Z01.812 Encounter for preprocedural laboratory examination (principal); N20.0 Calculus of kidney; Z51.81 Encounter for therapeutic drug level monitoring; Z79.899 Other long term (current) drug therapy
CPT/HCPCS: 36415; 85610; 85730; 87086

== ENCOUNTER 2020-03-30 03:04 | Outpatient (CLI) | payer MEDICARE, SELFPAY ==
[2020-03-30 19:47] LABS: SARS-CoV-2 RNA PCR Negative
== END 2020-03-30 03:05 | disposition home or self-care (01) ==
LOC: ANHCOVIDDT 03:04
PROVIDERS: PCP Internal Medicine; Visit Provider Urology
DX: Z01.812 Encounter for preprocedural laboratory examination (principal); Z20.828 Contact with and (suspected) exposure to other viral communicable diseases
CPT/HCPCS: 87635; C9803; U0003

== ENCOUNTER 2020-07-26 07:30 | Outpatient (RCR) | payer MEDICARE, SELFPAY | END 2020-07-26 08:59 | disposition home or self-care (01) | LOC: ANHCPREHAB 07:30 | PROVIDERS: PCP Internal Medicine; Visit Provider Internal Medicine Cardiovascular Disease | DX: Z95.2 Presence of prosthetic heart valve (principal) | CPT/HCPCS: 93798 ==

== ENCOUNTER 2020-08-10 10:37 | Outpatient (CLI) | payer MEDICARE, SELFPAY ==
--- NOTE | ~2020-08-10 | XR_ITS ---
EXAMINATION: CT abdomen pelvis wo/w con, XR abdomen/kub 1V DATE: 08/10/2020 11:41 INDICATION: Left ureteral stone TECHNIQUE: 1. Computed tomography (CT) of the abdomen and pelvis was performed without intravenous contrast. CT of the abdomen and pelvis was then performed with a total of 130 mL Omnipaque-350 intravenous contras t using a double-bolus technique for simultaneous opacification of the renal parenchyma and renal col lecting system. Automated exposure control and iterative reconstruction technique were employed. The dose-length product was 1143.21 mGy-cm. 2. A single view of the abdomen was obtained on 2 radiographs. COMPARISON: None FINDINGS: CT: Large calcified left lower lobe nodule consistent with old granulomatous disease. Visualized inferior heart is normal. Cardiac pacemaker/defibrillator with leads at the right ventricle and in a coronary vein overlying the lateral wall of the left ventricle via the coronary sinus. No pericardial or pleu ral effusion. Liver, gallbladder, spleen and bilateral adrenal glands are normal. There are few punct ate dystrophic calcifications at the head of the pancreas which are likely sequela of chronic pancrea titis. Symmetric bilateral renal parenchymal enhancement. Left internal ureteral stent with loops formed at the left renal pelvis and in the normal bladder. 8 x 7 x 4 mm stone alongside the stent at the mid le ft ureter at the level of the L4-L5 disc space with mild more proximal hydroureter without hydronephr osis. There are 3 punctate 1 mm nonobstructing stones in the right kidney. No right ureteral stones o r right-sided hydroureteronephrosis. There are few scattered colonic diverticula without adjacent inflammatory change to suggest diverticu litis. Small bowel and appendix are normal. No free intraperitoneal gas or fluid. No pathologically e nlarged abdominal or pelvic lymphadenopathy. Very small fat-containing left inguinal hernia. There is calcified atherosclerosis of the aorta and many of the other arteries. Severe lower lumbar spondylos is. Sacralized L5 segment. Large sclerotic bone island along side a lucent hemangioma in the L3 verte bral body. No interval change in a 6 mm sclerotic lesion in the L4 vertebral body or of a 1.7 cm scle rotic lesion in the left posterior iliac spine. ABDOMEN RADIOGRAPH(S): The previously noted 8 mm mid left ureteral stone can be clearly visualized along side the left inter nal ureteral stent projecting slightly below the level of the left transverse process of L4. No other evident urolithiasis. Normal bowel gas pattern. Severe left-sided and moderate right-sided hip osteo arthritis. IMPRESSION: 1. 8 mm stone in the mid left ureter alongside a left internal ureteral stent with no hydronephrosis. 2. A few tiny nonobstructing right renal stones. 3. No interval change in a few likely benign sclerotic lesions in the lower lumbar spine and left pos terior iliac spine. 4. Tiny fat-containing left inguinal hernia. Reviewed, dictated and finalized at location A. IMPRESSION: 1. 8 mm stone in the mid left ureter alongside a left internal ureteral stent w ith no hydronephrosis. 2. A few tiny nonobstructing right renal stones. 3. No interval change in a few likely benign sclerotic lesions in the lower lum bar spine and left posterior iliac spine. 4. Tiny fat-containing left inguinal hernia.
[2020-08-10 11:23] LABS: Estimated Glomerular Filt Rate > 60
== END 2020-08-10 10:38 | disposition home or self-care (01) ==
PROVIDERS: PCP Internal Medicine; Visit Provider Nurse Practitioner Adult Health
DX: N20.1 Calculus of ureter (principal); K40.90 Unilateral inguinal hernia, without obstruction or gangrene, not specified as recurrent
CPT/HCPCS: 74018; 74178; Q9967

== ENCOUNTER 2020-08-27 13:25 | Outpatient (CLI) | payer MEDICARE, SELFPAY ==
[2020-08-27 15:01] LABS: Anion Gap 11 mmol/L (8-16); Blood Urea Nitrogen 29 mg/dL (9-20); Calcium 9.9 mg/dL (8.4-10.2); Carbon Dioxide 31 mmol/L (22-30); Chloride 98 mmol/L (98-107); Estimated Glomerular Filt Rate 60; Glucose 251 mg/dL (75-110); Potassium 4.9 mmol/L (3.4-5.0); Sodium 140 mmol/L (137-145)
[2020-08-27 15:03] LABS: INR 0.9; Partial Thromboplastin Time 26.9 SECONDS (22.3-36.8); Prothrombin Time 13.1 Seconds (11.1-14.7)
== END 2020-08-27 13:26 | disposition home or self-care (01) ==
LOC: ANHSURGERY 13:30
PROVIDERS: Anesthesiology; PCP Internal Medicine; Visit Provider Urology
DX: Z01.818 Encounter for other preprocedural examination (principal); N20.0 Calculus of kidney; E11.9 Type 2 diabetes mellitus without complications
CPT/HCPCS: 36415; 80048; 85610; 85730; 87086

== ENCOUNTER → 2020-08-31 07:33 | Outpatient (CLI) | payer MEDICARE, SELFPAY ==
[2020-08-31 20:31] LABS: SARS-CoV-2 RNA PCR Negative
== END ==
PROVIDERS: PCP Internal Medicine; Visit Provider Urology
DX: Z01.812 Encounter for preprocedural laboratory examination (principal); Z20.822 Contact with and (suspected) exposure to COVID-19
CPT/HCPCS: C9803; U0003; U0005

== ENCOUNTER 2020-09-03 01:52 | Day surgery (SDC) | payer MEDICARE, SELFPAY ==
[2020-03-26 09:48] VITALS: BMI 23.6
--- NOTE | 2020-03-30 08:10 | PM.HPGS ---
History of Present Illness History of Present Illness Consent: Risks, benefits, and alternatives have been discussed and questions answered. Patient agrees to proceed with procedure. Chief complaint: Kidney Stone Narrative: Demian Warner is a 69 year old male without prior history of urolithiasis who recently presented to the emergency department on 03/25/2020 with acute left renal colic. Imaging revealed an obstructing left proximal ureteral stone. There was possible urinary tract infection at that time so we simply placed a ureteral stent with plans for ESWL down the road. [facility] Past Medical History Medical History Asthma As a child BPH (benign prostatic hyperplasia) DM2 (diabetes mellitus, type 2) Hyperlipidemia Hypertension Hypothyroidism Thyroid cancer Thyroidectomy and radioactive iodine Surgical History Surgical History H/O thyroidectomy History of tonsillectomy Family History Family History Father Brain cancer Mother Diabetes mellitus Dementia Colon cancer Social History Social History Social History: Patient lives with his Julieta. She is his durable power plastic press operator for healthcare. Patient desires to be a full code. Patient quit smoking about 20 years ago. He has 2 boys. He is retired from [employer] No alcohol or illicit drugs. Patient tried marijuana when he was a teenager. Smoking packs per day: 1 Smoking cigarettes per day: 20.0 Years smoked: 20 Smoking pack-years: 20.00 Smoking status: Former smoker Tobacco type: cigarettes Second hand tobacco smoke exposure: No Smoking end date: 03/26/95 Alcohol intake: never Substance use type: former substance user and marijuana Other substance usage details: Tried marijuana as a teenager Additional occupation/education comments: For the last 2 years Gender identity (if verbalized by the patient): Male Spiritual care concerns: No Agree to blood products: Yes Meds Home Medications and Allergies Home Medications Medication Instructions Recorded Confirmed Type Invokana 300 mg PO DAILY 07/01/19 03/26/20 History Januvia 100 mg PO DAILY 07/01/19 03/26/20 History levothyroxine 175 mcg PO DAILY 07/01/19 03/26/20 History metformin 1,000 mg PO BID 07/01/19 03/26/20 History aspirin 325 mg PO DAILY 11/28/19 03/26/20 History cholecalciferol (vitamin D3) 2,000 mg BYMOUTH DAILY 11/28/19 03/26/20 History atorvastatin 40 mg PO HS 03/25/20 03/26/20 History bumetanide 1 mg PO DAILY 03/25/20 03/26/20 History carvedilol 3.125 mg PO BID 03/25/20 03/26/20 History cephalexin 500 mg PO Q8H #9 cap 03/25/20 03/26/20 Rx hydrocodone-acetaminophen 1 - 2 tablet PO Q6H PRN #20 tablet 03/25/20 03/26/20 Rx losartan 25 mg PO DAILY 03/25/20 03/26/20 History potassium chloride 10 meq PO DAILY 03/25/20 03/26/20 History spironolactone 25 mg PO DAILY 03/25/20 03/26/20 History Allergies Allergy/AdvReac Type Severity Reaction Status Date / Time No Known Allergies Allergy Verified 03/26/20 09:40 Assessment and Plan Assessment and plan (1) Left ureteral calculus: Code(s): N20.1 - Calculus of ureter Status: Acute Assessment and Plan: Left ESWL
[2020-08-24 14:58] VITALS: BMI 26.2
--- NOTE | 2020-08-26 08:22 | PM.HPGS ---
History of Present Illness History of Present Illness Consent: Risks, benefits, and alternatives have been discussed and questions answered. Patient agrees to proceed with procedure. Chief complaint: LEFT Kidney Stone Narrative: Demian Warner is a 69 year old male originally presented to the ER in March 2020 with left renal colic and imaging showing an obstructing 8 mm left proximal ureteral stone. A stent was placed that time. He has since undergone multiple and extensive cardiac evaluations including implantation of a defibrillator. He now presents for definitive stone management with left ESWL. He is aware the risks including, but not limited to, persistent stone fragments, retroperitoneal hematoma, injury to the kidney. Review of Systems Cardiovascular: Cardiovascular: Denies chest pain, Denies lightheadedness, Denies palpitations and Denies dyspnea Respiratory: Respiratory: Denies dyspnea Gastrointestinal: Gastrointestinal: Denies diarrhea, Denies nausea and Denies vomiting Genitourinary: Genitourinary: Denies hematuria and Denies dysuria Endocrine: Endocrine: Denies palpitations PMFSH Past Medical History Medical History Asthma As a child BPH (benign prostatic hyperplasia) DM2 (diabetes mellitus, type 2) Hyperlipidemia Hypertension Hypothyroidism Thyroid cancer Thyroidectomy and radioactive iodine Surgical History Surgical History H/O thyroidectomy History of tonsillectomy Family History Family History Father Brain cancer Mother Diabetes mellitus Dementia Colon cancer Social History Social History Social History: Patient lives with his Julieta. She is his durable power criminal attorney for healthcare. Patient desires to be a full code. Patient quit smoking about 20 years ago. He has 2 boys. He is retired from [employer]. No alcohol or illicit drugs. Patient tried marijuana when he was a teenager. Smoking packs per day: 1 Smoking cigarettes per day: 20.0 Years smoked: 20 Smoking pack-years: 20.00 Smoking status: Never smoker Tobacco type: cigarettes Second hand tobacco smoke exposure: No Smoking end date: 03/26/95 Additional smoking assessment comments: STATES QUITTING 25+ YEARS AGO Alcohol intake: never Substance use: never Substance use type: does not use Other substance usage details: Tried marijuana as a teenager Additional occupation/education comments: For the last 2 years Gender identity (if verbalized by the patient): Male Spiritual care concerns: No Agree to blood products: Yes Meds Home Medications and Allergies Home Medications Medication Instructions Recorded Confirmed Type Invokana 300 mg PO DAILY 07/01/19 08/24/20 History Januvia 100 mg PO DAILY 07/01/19 08/24/20 History metformin 1,000 mg PO BID 07/01/19 08/24/20 History cholecalciferol (vitamin D3) 2,000 mg BYMOUTH DAILY 11/28/19 08/24/20 History atorvastatin 40 mg PO HS 03/25/20 08/24/20 History bumetanide 1 mg PO BID 03/25/20 08/24/20 History potassium chloride 10 meq PO EVERY OTHER DAY 03/25/20 08/24/20 History spironolactone 25 mg PO DAILY 03/25/20 08/24/20 History aspirin 81 mg PO DAILY 06/21/20 08/24/20 History carvedilol 12.5 mg PO BID 06/21/20 08/24/20 History levothyroxine 125 mcg PO DAILY 06/21/20 08/24/20 History sacubitril-valsartan [Entresto] 1 tablet PO BID 06/30/20 08/24/20 History Allergies Allergy/AdvReac Type Severity Reaction Status Date / Time No Known Allergies Allergy Verified 08/24/20 14:53 Exam Const: General: no acute distress Resp: Effort & Inspection: normal respiratory effort GI: Inspection: non-distended GI Palp: No abdominal tenderness and No Guarding due to palpation present (GI) Auscultation: normal bowel
--- NOTE | 2020-09-02 10:49 | WPDANESEPPF ---
Anes - Initial Pre Proc Eval Procedure: Operation Date: 09/03/20 15:30 Proposed Procedures p Left Extracorporeal Shock Wave Lithotripsy With Stent Exchange - Jayy Brown MD Date/Time: 09/02/20 10:49 Surgeon: Jayy Brown MD Pre Op Diagnosis: LEFT Kidney Stone Patient Data Age: 69 Gender: M Height: 1.78 m Weight: 82.72 kg Allergies Allergy/AdvReac Type Severity Reaction Status Date / Time No Known Allergies Allergy Verified 08/24/20 14:53 Home Medications Medication Instructions Recorded Confirmed Type Invokana 300 mg PO DAILY 07/01/19 08/24/20 History Januvia 100 mg PO DAILY 07/01/19 08/24/20 History metformin 1,000 mg PO BID 07/01/19 08/24/20 History cholecalciferol (vitamin D3) 2,000 mg BYMOUTH DAILY 11/28/19 08/24/20 History atorvastatin 40 mg PO HS 03/25/20 08/24/20 History bumetanide 1 mg PO BID 03/25/20 08/24/20 History potassium chloride 10 meq PO EVERY OTHER DAY 03/25/20 08/24/20 History spironolactone 25 mg PO DAILY 03/25/20 08/24/20 History aspirin 81 mg PO DAILY 06/21/20 08/24/20 History carvedilol 12.5 mg PO BID 06/21/20 08/24/20 History levothyroxine 125 mcg PO DAILY 06/21/20 08/24/20 History sacubitril-valsartan [Entresto] 1 tablet PO BID 06/30/20 08/24/20 History Patient hx anesthesia problems: none Family hx anesthesia problems: none [facility] Past Medical History Medical History Asthma As a child BPH (benign prostatic hyperplasia) DM2 (diabetes mellitus, type 2) Hyperlipidemia Hypertension Hypothyroidism Thyroid cancer Thyroidectomy and radioactive iodine Surgical History Surgical History H/O thyroidectomy History of tonsillectomy Family History Family History Father Brain cancer Mother Diabetes mellitus Dementia Colon cancer Social History Social History Social History: Patient lives with his Julieta. She is his durable power state's attorney for healthcare. Patient desires to be a full code. Patient quit smoking about 20 years ago. He has 2 boys. He is retired from [employer]. No alcohol or illicit drugs. Patient tried marijuana when he was a teenager. Smoking packs per day: 1 Smoking cigarettes per day: 20.0 Years smoked: 20 Smoking pack-years: 20.00 Smoking status: Former smoker Tobacco type: cigarettes Second hand tobacco smoke exposure: No Smoking end date: 03/26/95 Additional smoking assessment comments: STATES QUITTING 25+ YEARS AGO Alcohol intake: never Substance use type: former substance user and marijuana Other substance usage details: Tried marijuana as a teenager Living arrangements: with family Additional occupation/education comments: For the last 2 years Gender identity (if verbalized by the patient): Male Spiritual care concerns: No Agree to blood products: Yes Anes - Eval Final PreProcedure Day of Procedure 09/02/20 10:49 Patient weight: overweight Heart: regular rate and rhythm Lungs: clear to auscultation and normal air movement Airway: Mallampati scale class II Neurological: alert and oriented Last oral intake: >/= 8 hours ASA classification: III Emergent: no Anesthetic plan: proceed Anesthesia type and monitoring: general LMA Informed Consent: The patient's anesthetic plan and its attendant risks and benefits were discussed with the patient/family/POA. Questions were solicited and answers provided to the satisfaction of the patient/family/POA.
--- NOTE | ~2020-09-03 | XR_ITS ---
EXAMINATION: XR abdomen/kub 1V DATE: 09/03/2020 13:39 INDICATION: Left ureteral stone. TECHNIQUE: A supine view of the abdomen on 2 radiographs was obtained. COMPARISON: Abdomen radiographs 08/10/2020, CT abdomen and pelvis 08/10/2020 FINDINGS: There are no dilated loops of bowel. There is a left internal ureteral stent in expected po sition. The kidneys are obscured by bowel. There is an 8 mm stone in proximal left ureter. There are pacer wires in right atrium, right ventricle, and coronary sinus. A median sternotomy wire is noted. IMPRESSION: 1. 8 mm stone in proximal left ureter. Left internal ureteral stent in expected position. Reviewed, dictated and finalized at location B.
--- NOTE | 2020-09-03 07:03 | WPDHPUPDATE1 ---
History and Physical Update Update Date/Time: 09/03/20 07:03 History and Physical has been reviewed, including an updated exam of the patient. There are NO changes in the patient's condition. Risks, benefits, and alternatives have been discussed and questions answered. Patient agrees to proceed with procedure.
[2020-09-03 13:49] VITALS: BP 119/59; PULSE 70; RESP 18; TEMP 36.4; O2SAT 95
[2020-09-03] MEDS: LACTATED RINGERS 1,000 ML 30 ML IV CONT ×2 (14:25→16:18)
[2020-09-03 14:36] LABS: Glucose Point of Care 152 (65-105)
[2020-09-03] MEDS: ceFAZolin 2 GM/D5W 50 ML 2 GM/50 ML BAG IVPB (15:05)
--- NOTE | 2020-09-03 15:31 | PM.PROC ---
Procedure Note - Detailed Date of procedure: 09/03/20 Pre-op diagnosis: LEFT Kidney Stone Post-op diagnosis: same Procedure performed: Left ESWL Description of procedure: The patient was brought to the operative suite where he was placed in the supine position on the Dornier lithotripsy table. The focal point of the lithotripter was placed at a 8mm left mid-ureteral calculus. A total of 2500 shocks were delivered at a power setting of 5. There appeared to be good fragmentation of the stone. The patient tolerated the procedure well and was taken to the recovery room in good condition. Anesthesia: GLMA Surgeon: Jayy Brown MD Estimated blood loss (mL): 0 Drains: No Packing: No Pathology: none sent Complications: No immediate complications Condition: stable Disposition: PACU
[2020-09-03 15:55] VITALS: BP 102/59; PULSE 63; RESP 15; TEMP 36.1; O2SAT 99
[2020-09-03 15:58] LABS: Glucose Point of Care 156 (65-105)
[2020-09-03 16:10] VITALS: BP 118/78; PULSE 67; RESP 16; O2SAT 100
[2020-09-03 16:25] VITALS: BP 115/61; PULSE 65; RESP 10; O2SAT 100
[2020-09-03 16:28] VITALS: BP 127/63; PULSE 67; RESP 12
[2020-09-03 16:58] VITALS: BP 120/63; PULSE 69; RESP 12
== END 2020-09-03 17:10 | disposition home or self-care (01) ==
PROVIDERS: PCP Internal Medicine; Visit Provider Urology
PROC: (CPT 50590; principal; 2020-09-03 15:30)
DX: N20.1 Calculus of ureter (principal); N40.0 Benign prostatic hyperplasia without lower urinary tract symptoms; E78.5 Hyperlipidemia, unspecified; E89.0 Postprocedural hypothyroidism; Z85.850 Personal history of malignant neoplasm of thyroid; F17.210 Nicotine dependence, cigarettes, uncomplicated; Z79.82 Long term (current) use of aspirin; Z79.84 Long term (current) use of oral hypoglycemic drugs; I10 Essential (primary) hypertension; E11.9 Type 2 diabetes mellitus without complications
CPT/HCPCS: 50590; 74018; 82948; J0690; J1100; J7120

== ENCOUNTER 2020-10-12 10:06 | Emergency (ER) | payer MEDICARE, SELFPAY ==
[2020-10-12 10:12] VITALS: BP 124/63; PULSE 86; RESP 16; TEMP 37.8; O2SAT 99
--- NOTE | 2020-10-12 10:16 | ED.URI ---
HPI - URI/Sore Throat General Chief Complaint: Upper Respiratory Infection Stated Complaint: RUNNY NOSE/COUGH/CONGESTION Time Seen by Provider: 10/12/20 10:18 Source: patient and RN notes reviewed Mode of arrival: ambulatory Limitations: no limitations History of Present Illness HPI Narrative: 69-year-old male with history of diabetes, CVA, artificial heart valve presents with 2-day history of cough, chest congestion, nasal congestion, body aches, low-grade fever, rhinorrhea, sore throat. Reports he was vaccinated for Covid in July. He reports he tried an [id number] sinus medication with no relief. He denies shortness of breath, chills, sweats. Denies nausea, vomiting, abdominal pain. Denies known sick contacts MD elicited complaint: cough Related Data Home Medications Medication Instructions Recorded Confirmed Invokana 300 mg PO DAILY 07/01/19 08/24/20 Januvia 100 mg PO DAILY 07/01/19 08/24/20 metformin 1,000 mg PO BID 07/01/19 08/24/20 cholecalciferol (vitamin D3) 2,000 mg BYMOUTH DAILY 11/28/19 08/24/20 atorvastatin 40 mg PO HS 03/25/20 08/24/20 bumetanide 1 mg PO BID 03/25/20 08/24/20 aspirin 81 mg PO DAILY 06/21/20 08/24/20 carvedilol 12.5 mg PO BID 06/21/20 08/24/20 levothyroxine 125 mcg PO DAILY 06/21/20 08/24/20 Entresto 1 tablet PO BID 06/30/20 08/24/20 Allergies Allergy/AdvReac Type Severity Reaction Status Date / Time No Known Allergies Allergy Verified 09/03/20 14:13 Review of Systems Review of Systems: Narrative: CONSTITUTIONAL: Reports malaise, fever. Denies chills, sweats EYES: Denies visual changes, redness, or discharge. ENT: Reports rhinorrhea, congestion, sore throat. Denies sinus pain, otalgia CARDIOVASCULAR: Denies chest pain, palpitations, or edema. RESPIRATORY: Reports persistent cough. Denies dyspnea. GASTROINTESTINAL: Denies abdominal pain, nausea, vomiting, diarrhea SKIN: Denies rash or itching. MUSCULOSKELETAL: Reports myalgia. NEUROLOGIC: Denies headache. All systems reviewed & are unremarkable except as noted in HPI and below PMFSH Past Medical History Medical History (Updated 10/12/20 @ 10:30 by Harini Gomes NP) Asthma As a child BPH (benign prostatic hyperplasia) DM2 (diabetes mellitus, type 2) Hyperlipidemia Hypertension Hypothyroidism Thyroid cancer Thyroidectomy and radioactive iodine Surgical History Surgical History H/O thyroidectomy History of tonsillectomy Family History Family History Father Brain cancer Mother Diabetes mellitus Dementia Colon cancer Social History Social History Social History: Patient lives with his Julieta. She is his durable power business attorney for healthcare. Patient desires to be a full code. Patient quit smoking about 20 years ago. He has 2 boys. He is retired from [employer]. No alcohol or illicit drugs. Patient tried marijuana when he was a teenager. Smoking packs per day: 1 Smoking cigarettes per day: 20.0 Years smoked: 20 Smoking pack-years: 20.00 Smoking status: Former smoker Tobacco type: cigarettes Second hand tobacco smoke exposure: No Smoking end date: 03/26/95 Additional smoking assessment comments: STATES QUITTING 25+ YEARS AGO Alcohol intake: never Substance use type: former substance user and marijuana Other substance usage details: Tried marijuana as a teenager Additional occupation/education comments: For the last 2 years Gender identity (if verbalized by the patient): Male Spiritual care concerns: No Agree to blood products: Yes Comments At time of signature, agree with nursing past medical, surgical, social and family history. There is no relevant family history pertinent to the presenting complaint Exam Narrative: Exam Narrative: GENERAL: Well-appearing, well-nourished, and in no acute
== END 2020-10-12 10:44 | disposition home or self-care (01) ==
PROVIDERS: Emergency Provider Nurse Practitioner; PCP Internal Medicine
DX: J06.9 Acute upper respiratory infection, unspecified (principal); R09.89 Other specified symptoms and signs involving the circulatory and respiratory systems; Z20.822 Contact with and (suspected) exposure to COVID-19; E11.9 Type 2 diabetes mellitus without complications; J45.909 Unspecified asthma, uncomplicated; N40.0 Benign prostatic hyperplasia without lower urinary tract symptoms; E78.5 Hyperlipidemia, unspecified; I10 Essential (primary) hypertension; Z85.850 Personal history of malignant neoplasm of thyroid; E89.0 Postprocedural hypothyroidism; Z95.2 Presence of prosthetic heart valve; Z86.73 Personal history of transient ischemic attack (TIA), and cerebral infarction without residual deficits; Z79.899 Other long term (current) drug therapy; Z79.84 Long term (current) use of oral hypoglycemic drugs; Z87.891 Personal history of nicotine dependence
CPT/HCPCS: 87426; 99213; C9803; G0463

== ENCOUNTER 2020-10-14 11:08 | Outpatient (CLI) | payer MEDICARE, SELFPAY ==
--- NOTE | ~2020-10-14 | XR_ITS ---
EXAMINATION: XR abdomen/kub 1V EXAM DATE: 10/14/2020 11:31 INDICATION: Left ureteral stone, post lithotripsy. TECHNIQUE: Frontal projection of the upper abdomen, frontal projection lower abdomen/pelvis for inter pretation. Comparison is made to prior examination from 09/03/2020. FINDINGS: There is a left-sided double-J ureteral stent in position. Previously seen stone approximat moody 1 cm in size along its mid aspect is no longer identified. Possible small stone fragments along t he mid to distal aspect of the stent. Nonobstructive bowel gas pattern. There is moderate to severe l eft hip, mild to moderate right hip primary osteoarthritis. IMPRESSION: 1. Possible stone fragments along left ureteral stent, versus arterial sclerosis. Reviewed, dictated and finalized at location B. IMPRESSION: 1. Possible stone fragments along left ureteral stent, versus arterial scleros is.
== END 2020-10-14 11:09 | disposition home or self-care (01) ==
LOC: ANHIMG 11:18
PROVIDERS: PCP Internal Medicine; Visit Provider Nurse Practitioner Adult Health
DX: N20.0 Calculus of kidney (principal)
CPT/HCPCS: 74018

== ENCOUNTER 2020-12-07 08:47 | Outpatient (CLI) | payer MEDICARE, SELFPAY ==
--- NOTE | ~2020-12-07 | XR_ITS ---
EXAMINATION: XR abdomen/kub 1V INDICATION: Left ureteral stone TECHNIQUE: Supine views of the abdomen were obtained on 2 radiographs. COMPARISON: 10/14/2020 FINDINGS: The left internal ureteral stent has been removed. No definite left urolithiasis is identif ied. Calcified atherosclerosis is noted. There is a moderate volume of colonic stool. Advanced osteoa rthritis is noted in the left hip. There is moderate right hip osteoarthritis. Moderate lumbar spondy losis is noted. IMPRESSION: 1. Left internal ureteral stent removal. No definite urolithiasis identified. Reviewed, dictated and finalized at location A.
== END 2020-12-07 08:48 | disposition home or self-care (01) ==
LOC: ANHIMG 08:51
PROVIDERS: PCP Internal Medicine; Visit Provider Urology
DX: N20.1 Calculus of ureter (principal); M47.816 Spondylosis without myelopathy or radiculopathy, lumbar region; M17.0 Bilateral primary osteoarthritis of knee
CPT/HCPCS: 74018

== ENCOUNTER 2021-07-26 09:22 | Outpatient (CLI) | payer MEDICARE, SELFPAY ==
--- NOTE | ~2021-07-26 | XR_ITS ---
EXAMINATION: XR abdomen/kub 1V DATE: 07/26/2021 09:41 INDICATION: Left ureteral stone. TECHNIQUE: A supine view of the abdomen on 2 radiographs was obtained. COMPARISON: Abdomen radiographs 12/07/2020 FINDINGS: There are no dilated loops of bowel. There is a moderate volume of stool in the colon. Ther e is no visible urolithiasis. There is a phlebolith in left pelvis. There are pacer wires in right ve ntricle and coronary sinus of the heart. Median sternotomy wires are noted. IMPRESSION: 1. No visible urolithiasis. Reviewed, dictated and finalized at location A. IMPRESSION: 1. No visible urolithiasis.
== END 2021-07-26 09:23 | disposition home or self-care (01) ==
LOC: ANHIMG 09:23
PROVIDERS: PCP Internal Medicine; Visit Provider Urology
DX: N20.1 Calculus of ureter (principal)
CPT/HCPCS: 74018

== ENCOUNTER 2022-01-25 00:39 | Day surgery (SDC) | payer MEDICARE, SELFPAY ==
[2022-01-18 14:38] VITALS: BMI 24.0
--- NOTE | 2022-01-23 13:03 | PM.HPGS ---
History of Present Illness History of Present Illness Consent: Risks, benefits, and alternatives have been discussed and questions answered. Patient agrees to proceed with procedure. Chief complaint: neoplasm screening Narrative: Demian Warner is a 71 year old male Referred for colon cancer screening. Review of Systems Review of Systems: All systems reviewed & are unremarkable except as noted in HPI and below PMFSH Past Medical History Medical History (Updated 01/25/22 @ 06:55 by Bryce Griffin MD) Asthma As a child BPH (benign prostatic hyperplasia) Cardiomyopathy CHF (congestive heart failure) DM2 (diabetes mellitus, type 2) Hyperlipidemia Hypertension Hypothyroidism Thyroid cancer Thyroidectomy and radioactive iodine Surgical History Surgical History (Updated 01/25/22 @ 06:55 by Bryce Griffin MD) H/O aortic valve replacement H/O thyroidectomy History of tonsillectomy Mitral valve replaced Family History Family History Father Brain cancer Mother Diabetes mellitus Dementia Colon cancer Social History Social History Social History: Patient lives with his Julieta. She is his durable power claim attorney for healthcare. Patient desires to be a full code. Patient quit smoking about 20 years ago. He has 2 boys. He is retired from [employer]. No alcohol or illicit drugs. Patient tried marijuana when he was a teenager. Smoking packs per day: 1.5 Smoking cigarettes per day: 30.0 Years smoked: 20 Smoking pack-years: 30.00 Smoking status: Former smoker Tobacco type: cigarettes Second hand tobacco smoke exposure: No Smoking end date: 03/26/95 Additional smoking assessment comments: STATES QUITTING 25+ YEARS AGO Alcohol intake: never Substance use: never Substance use type: does not use Other substance usage details: OCC. MARIJUANA Living arrangements: alone Additional occupation/education comments: For the last 2 years Gender identity (if verbalized by the patient): Male Spiritual care concerns: No Agree to blood products: Yes Meds Home Medications and Allergies Home Medications Medication Instructions Recorded Confirmed Type canagliflozin 300 mg tablet 300 mg PO DAILY 07/01/19 01/25/22 History (Invokana) metformin 1,000 mg tablet 1,000 mg PO BID 07/01/19 01/25/22 History sitagliptin 100 mg tablet (Januvia) 100 mg PO DAILY 07/01/19 01/25/22 History cholecalciferol (vitamin D3) 2,000 mg BYMOUTH BID 11/28/19 01/25/22 History atorvastatin 40 mg tablet 40 mg PO HS 03/25/20 01/25/22 History bumetanide 1 mg tablet 1 mg PO BID 03/25/20 01/25/22 History aspirin 81 mg tablet 162 mg PO DAILY 06/21/20 01/25/22 History carvedilol 12.5 mg tablet 12.5 mg PO BID 06/21/20 01/25/22 History levothyroxine 125 mcg capsule 125 mcg PO DAILY 06/21/20 01/25/22 History sacubitril 49 mg-valsartan 51 mg 1 tablet PO BID 06/30/20 01/25/22 History tablet (Entresto) glimepiride 2 mg tablet 2 mg PO DAILY 01/18/22 01/25/22 History spironolactone 25 mg tablet 25 mg PO DAILY 01/18/22 01/25/22 History Allergies Allergy/AdvReac Type Severity Reaction Status Date / Time No Known Allergies Allergy Verified 01/25/22 06:18 Exam Resp: Auscultation: clear to auscultation bilaterally Cardio: Rate: regular rate Rhythm: regular rhythm GI: GI Palp: Yes Soft to palpation and No Tenderness to palpation present (GI) Assessment and Plan Assessment and plan (1) Colon cancer screening: Code(s): Z12.11 - Encounter for screening for malignant neoplasm of colon Status: Acute Assessment and Plan: Colonoscopy with possible biopsy or polypectomy or cautery or injection of substances.
[2022-01-25 06:19] VITALS: BMI 24.0
[2022-01-25] MEDS: LACTATED RINGERS 1,000 ML 150 ML IV CONT (06:34)
[2022-01-25] MEDS: GENTAMICIN 80MG/SOD CHL 50 ML 80 MG/50 ML BAG 100 MG IVPB (06:35)
[2022-01-25 06:41] LABS: Glucose Point of Care 93 mg/dl (65-105)
[2022-01-25 06:43] VITALS: BP 101/58; PULSE 75; RESP 20; TEMP 36.1; O2SAT 100
--- NOTE | 2022-01-25 06:54 | WPDANESEPPF ---
Anes - Initial Pre Proc Eval Procedure: Operation Date: 01/25/22 07:30 Proposed Procedures p Screening Colonoscopy - Cruzito Parada MD Date/Time: 01/25/22 06:54 Surgeon: Cruzito Parada MD Pre Op Diagnosis: neoplasm screening Patient Data Age: 71 Gender: M Height: 1.8 m Weight: 78.1 kg Last Vital Signs Temp 36.1 C L 01/25/22 06:43 Pulse 75 01/25/22 06:43 Resp 20 01/25/22 06:43 BP 101/58 L 01/25/22 06:43 Pulse Ox 100 01/25/22 06:43 O2 Del Method Room Air 01/25/22 06:43 Allergies Allergy/AdvReac Type Severity Reaction Status Date / Time No Known Allergies Allergy Verified 01/25/22 06:18 Home Medications Medication Instructions Recorded Confirmed Type canagliflozin 300 mg tablet 300 mg PO DAILY 07/01/19 01/25/22 History (Invokana) metformin 1,000 mg tablet 1,000 mg PO BID 07/01/19 01/25/22 History sitagliptin 100 mg tablet (Januvia) 100 mg PO DAILY 07/01/19 01/25/22 History cholecalciferol (vitamin D3) 2,000 mg BYMOUTH BID 11/28/19 01/25/22 History atorvastatin 40 mg tablet 40 mg PO HS 03/25/20 01/25/22 History bumetanide 1 mg tablet 1 mg PO BID 03/25/20 01/25/22 History aspirin 81 mg tablet 162 mg PO DAILY 06/21/20 01/25/22 History carvedilol 12.5 mg tablet 12.5 mg PO BID 06/21/20 01/25/22 History levothyroxine 125 mcg capsule 125 mcg PO DAILY 06/21/20 01/25/22 History sacubitril 49 mg-valsartan 51 mg 1 tablet PO BID 06/30/20 01/25/22 History tablet (Entresto) glimepiride 2 mg tablet 2 mg PO DAILY 01/18/22 01/25/22 History spironolactone 25 mg tablet 25 mg PO DAILY 01/18/22 01/25/22 History Laboratory Tests 01/25/22 06:39 POC Capillary Glucose 93 mg/dl mg/dl (65-105) Patient hx anesthesia problems: none Family hx anesthesia problems: none Results Review: All pre-operative results and documents have been reviewed as part of the pre-operative evaluation. [facility] Past Medical History Medical History (Updated 01/25/22 @ 06:55 by Bryce Griffin MD) Asthma As a child BPH (benign prostatic hyperplasia) Cardiomyopathy CHF (congestive heart failure) DM2 (diabetes mellitus, type 2) Hyperlipidemia Hypertension Hypothyroidism Thyroid cancer Thyroidectomy and radioactive iodine Surgical History Surgical History (Updated 01/25/22 @ 06:55 by Bryce Griffin MD) H/O aortic valve replacement H/O thyroidectomy History of tonsillectomy Mitral valve replaced Family History Family History Father Brain cancer Mother Diabetes mellitus Dementia Colon cancer Social History Social History Social History: Patient lives with his Julieta. She is his durable power banking attorney for healthcare. Patient desires to be a full code. Patient quit smoking about 20 years ago. He has 2 boys. He is retired from [employer]. No alcohol or illicit drugs. Patient tried marijuana when he was a teenager. Smoking packs per day: 1.5 Smoking cigarettes per day: 30.0 Years smoked: 20 Smoking pack-years: 30.00 Smoking status: Former smoker Tobacco type: cigarettes Second hand tobacco smoke exposure: No Smoking end date: 03/26/95 Additional smoking assessment comments: STATES QUITTING 25+ YEARS AGO Alcohol intake: never Substance use: never Substance use type: does not use Other substance usage details: OCC. MARIJUANA Living arrangements: alone Additional occupation/education comments: For the last 2 years Gender identity (if verbalized by the patient): Male Spiritual care concerns: No Agree to blood products: Yes Anes - Eval Final PreProcedure Day of Procedure 01/25/22 06:54 Patient weight: normal Heart: regular rate and rhythm Lungs: clear to auscultation Airway: Mallampati scale class II Neurological: alert and oriented Last oral intake: >/= 8 hours ASA classification: IV Emergent: no Anesthetic plan: p
[2022-01-25] MEDS: AMPICILLIN 2 GM/NS 100 ML 2 GM/100 ML BAG IVPB (07:03)
[2022-01-25 08:00] VITALS: BP 82/47; PULSE 80; RESP 25; O2SAT 98
[2022-01-25 08:10] VITALS: BP 92/50; PULSE 59; RESP 15; O2SAT 100
--- NOTE | 2022-01-25 08:13 | SUR.PHASEII ---
Spoke with Dr. Griffin, magnet was used on AICD in procedure room. Per Dr. Griffin, no need to interrogate.
[2022-01-25 08:20] VITALS: BP 97/53; PULSE 73; RESP 16; O2SAT 100
== END 2022-01-25 08:30 | disposition home or self-care (01) ==
PROVIDERS: PCP Internal Medicine; Visit Provider Internal Medicine Gastroenterology
PROC: 0DJD8ZZ Inspection of Lower Intestinal Tract, Via Natural or Artificial Opening Endoscopic (ICD-10-PCS; CPT 45378; principal; 2022-01-25 07:30)
DX: Z12.11 Encounter for screening for malignant neoplasm of colon (principal); C18.7 Malignant neoplasm of sigmoid colon; D12.0 Benign neoplasm of cecum; D12.3 Benign neoplasm of transverse colon; K57.30 Diverticulosis of large intestine without perforation or abscess without bleeding; I11.0 Hypertensive heart disease with heart failure; I50.9 Heart failure, unspecified; E11.9 Type 2 diabetes mellitus without complications; E78.5 Hyperlipidemia, unspecified; N40.0 Benign prostatic hyperplasia without lower urinary tract symptoms; E89.0 Postprocedural hypothyroidism; Z95.4 Presence of other heart-valve replacement; Z87.891 Personal history of nicotine dependence; F12.90 Cannabis use, unspecified, uncomplicated; Z79.84 Long term (current) use of oral hypoglycemic drugs; Z79.82 Long term (current) use of aspirin
CPT/HCPCS: 45381; 45385; 45380; 82948; 88305; J0290; J1580; J2704; J7120

== ENCOUNTER 2022-02-15 05:38 | Emergency (ER) | payer MEDICARE, SELFPAY ==
--- NOTE | ~2022-02-15 | XR_ITS ---
EXAMINATION: XR knee LT min 4V DATE: 02/15/2022 06:20 INDICATION: Left knee pain and swelling TECHNIQUE: Anteroposterior, 2 oblique and crosstable lateral views of the left knee were obtained COMPARISON: None. FINDINGS: Mild genu varus with at least moderate joint space narrowing in the medial compartment. This is likel y underestimated on the nonweightbearing imaging with remodeling of the articular surface at the medi al tibial plateau and anterior weightbearing medial femoral condyle. Mild joint space narrowing and s mall osteophytes at the patellofemoral compartment. Additional tiny marginal osteophytes at the later al compartment. No fracture. Moderate sized left knee joint effusion without layering lipohemarthrosi s. Atherosclerotic calcifications at the distal thigh and proximal calf. IMPRESSION: 1. Severe medial compartment predominant tricompartmental osteoarthritis with moderate-sized left kne e joint effusion. No acute osseous abnormality. Reviewed, dictated and finalized at location A. IMPRESSION: 1. Severe medial compartment predominant tricompartmental osteoarthritis with m oderate-sized left knee joint effusion. No acute osseous abnormality.
[2022-02-15 05:39] VITALS: BP 118/58; PULSE 71; RESP 17; TEMP 36.3; O2SAT 98
[2022-02-15 05:56] VITALS: BP 117/56; PULSE 71; RESP 15; O2SAT 98
--- NOTE | 2022-02-15 06:41 | ED.GENADULT ---
HPI - General Adult General Chief complaint: Extremity Injury, Lower Stated complaint: left knee pain Time Seen by Provider: 02/15/22 05:50 History of Present Illness HPI narrative: 71-year-old male with history of arthritis presented emerged department for evaluation of worsening left knee pain. Patient states when he woke up yesterday morning swelling of the knee and states it is continued to bother him. Patient denies any fevers. Patient denies any falls or injuries. Patient states that he does ride the bike and do other physical activity daily and thinks he may have just worn out. Related Data Home Medications Medication Instructions Recorded Confirmed canagliflozin 300 mg tablet 300 mg PO DAILY 07/01/19 01/25/22 (Invokana) metformin 1,000 mg tablet 1,000 mg PO BID 07/01/19 01/25/22 sitagliptin 100 mg tablet (Januvia) 100 mg PO DAILY 07/01/19 01/25/22 cholecalciferol (vitamin D3) 2,000 mg BYMOUTH BID 11/28/19 01/25/22 atorvastatin 40 mg tablet 40 mg PO HS 03/25/20 01/25/22 bumetanide 1 mg tablet 1 mg PO BID 03/25/20 01/25/22 aspirin 81 mg tablet 162 mg PO DAILY 06/21/20 01/25/22 carvedilol 12.5 mg tablet 12.5 mg PO BID 06/21/20 01/25/22 levothyroxine 125 mcg capsule 125 mcg PO DAILY 06/21/20 01/25/22 sacubitril 49 mg-valsartan 51 mg 1 tablet PO BID 06/30/20 01/25/22 tablet (Entresto) glimepiride 2 mg tablet 2 mg PO DAILY 01/18/22 01/25/22 spironolactone 25 mg tablet 25 mg PO DAILY 01/18/22 01/25/22 Allergies Allergy/AdvReac Type Severity Reaction Status Date / Time No Known Allergies Allergy Verified 02/15/22 05:46 Review of Systems Review of Systems: CONSTITUTIONAL: Denies fever, chills, or sweats. EYES: Denies visual changes, redness, or discharge. ENT: Denies rhinorrhea, congestion, sore throat, or otalgia. CARDIOVASCULAR: Denies chest pain, palpitations, or edema. RESPIRATORY: Denies cough or dyspnea. GASTROINTESTINAL: Denies abdominal pain, nausea, vomiting, or diarrhea. GENITOURINARY: Denies dysuria or hematuria. SKIN: Denies rash or itching. MUSCULOSKELETAL: Left knee pain NEUROLOGIC: Denies headache, numbness, or weakness. PSYCHIATRIC: Denies anxiety or depression. [facility] Past Medical History Medical History (Updated 02/17/22 @ 00:56 by Zhen Rodriguez MD) Asthma As a child BPH (benign prostatic hyperplasia) Cardiomyopathy CHF (congestive heart failure) DM2 (diabetes mellitus, type 2) Hyperlipidemia Hypertension Hypothyroidism Thyroid cancer Thyroidectomy and radioactive iodine Surgical History Surgical History (Updated 01/25/22 @ 06:55 by Bryce Griffin MD) H/O aortic valve replacement H/O thyroidectomy History of tonsillectomy Mitral valve replaced Family History Family History Father Brain cancer Mother Diabetes mellitus Dementia Colon cancer Social History Social History Social History: Patient lives with his Julieta. She is his durable power energy attorney for healthcare. Patient desires to be a full code. Patient quit smoking about 20 years ago. He has 2 boys. He is retired from [employer]. No alcohol or illicit drugs. Patient tried marijuana when he was a teenager. Smoking packs per day: 1.5 Smoking cigarettes per day: 30.0 Years smoked: 20 Smoking pack-years: 30.00 Smoking status: Former smoker Tobacco type: cigarettes Second hand tobacco smoke exposure: No Smoking end date: 03/26/95 Additional smoking assessment comments: STATES QUITTING 25+ YEARS AGO Alcohol intake: never Substance use: never Substance use type: does not use Other substance usage details: OCC. MARIJUANA Additional occupation/education comments: For the last 2 years Gender identity (if verbalized by the patient): Male Spiritual care concerns: No Agree to blood products: Yes Exam Narrative: APPEARANCE: Well appearing, no pain, no distress, w
[2022-02-15] MEDS: KETOROLAC 30 MG/ML VIAL (*BKC) IM (06:54)
[2022-02-15] MEDS: HYDROcodone/acetaminophen (*CRX) 5-325 MG TABLET 1 TAB PO (06:56)
[2022-02-15 07:35] VITALS: BP 127/66; PULSE 66; RESP 16; O2SAT 98
== END 2022-02-15 07:35 | disposition home or self-care (01) ==
PROVIDERS: Emergency Provider Emergency Medicine; PCP Internal Medicine
DX: M17.12 Unilateral primary osteoarthritis, left knee (principal); I42.9 Cardiomyopathy, unspecified; I11.0 Hypertensive heart disease with heart failure; I50.9 Heart failure, unspecified; E11.9 Type 2 diabetes mellitus without complications; E78.5 Hyperlipidemia, unspecified; N40.0 Benign prostatic hyperplasia without lower urinary tract symptoms; E89.0 Postprocedural hypothyroidism; Z85.850 Personal history of malignant neoplasm of thyroid; Z95.2 Presence of prosthetic heart valve; Z87.891 Personal history of nicotine dependence; Z79.84 Long term (current) use of oral hypoglycemic drugs
CPT/HCPCS: 73564; 96372; 99283; A9270; J1885

== ENCOUNTER 2022-08-20 13:51 | Emergency (ER) | payer MEDICARE, SELFPAY ==
[2022-08-20 14:07] VITALS: BP 106/54; PULSE 75; RESP 16; TEMP 37.2; O2SAT 99
[2022-08-20 14:17] LABS: Glucose Point of Care 155 mg/dl (65-105)
--- NOTE | 2022-08-20 14:34 | ED.NAVMDI ---
HPI - Nausea/Vomiting/Diarrhea General Chief complaint: Nausea/Vomiting/Diarrhea Stated complaint: nausea, diarrhea, weakness Time Seen by Provider: 08/20/22 14:25 Source: patient and family () Mode of arrival: wheelchair Limitations: no limitations History of Present Illness HPI Narrative: presents with patient today complaining of a 2 day history of weakness, fatigue, nausea, intermittent diarrhea, generalized abdominal pain, decreased appetite. Currently rates pain 5/10. Patient is diabetic but does not check his blood sugars. Denies blood or mucus in his stool. He has been able to keep down fluids and is urinating normally. Denies fever. Related Data Home Medications Medication Instructions Recorded Confirmed canagliflozin 300 mg tablet 300 mg PO DAILY 07/01/19 08/20/22 (Invokana) metformin 1,000 mg tablet 1,000 mg PO BID 07/01/19 08/20/22 sitagliptin phosphate 100 mg 100 mg PO DAILY 07/01/19 08/20/22 tablet (Januvia) cholecalciferol (vitamin D3) 2,000 mg BYMOUTH BID 11/28/19 08/20/22 atorvastatin 40 mg tablet 40 mg PO HS 03/25/20 08/20/22 bumetanide 1 mg tablet 1 mg PO BID 03/25/20 08/20/22 aspirin 81 mg tablet 162 mg PO DAILY 06/21/20 08/20/22 carvedilol 12.5 mg tablet 12.5 mg PO BID 06/21/20 08/20/22 levothyroxine 125 mcg capsule 125 mcg PO DAILY 06/21/20 08/20/22 sacubitril 49 mg-valsartan 51 mg 1 tablet PO BID 06/30/20 08/20/22 tablet (Entresto) glimepiride 2 mg tablet 2 mg PO DAILY 01/18/22 08/20/22 spironolactone 25 mg tablet 25 mg PO DAILY 01/18/22 08/20/22 Allergies Allergy/AdvReac Type Severity Reaction Status Date / Time No Known Allergies Allergy Verified 08/20/22 14:02 Review of Systems Review of Systems: CONSTITUTIONAL: Denies fever. + chills, sweats, fatigue, weakness, body aches EYES: Denies visual changes, redness, or discharge. ENT: Denies rhinorrhea, congestion, sore throat, or otalgia. CARDIOVASCULAR: Denies chest pain, palpitations, or edema. RESPIRATORY: Denies cough or dyspnea. GASTROINTESTINAL: Denies vomiting. + nausea, diarrhea, abdominal pain, decreased appetite GENITOURINARY: Denies dysuria or hematuria. SKIN: Denies rash, itching, or wounds. MUSCULOSKELETAL: Denies back pain, joint pain, or myalgia. NEUROLOGIC: Denies headache, numbness, tingling. PSYCH: Denies depression or anxiety. [facility] Past Medical History Medical History Asthma As a child BPH (benign prostatic hyperplasia) Cardiomyopathy CHF (congestive heart failure) DM2 (diabetes mellitus, type 2) Hyperlipidemia Hypertension Hypothyroidism Thyroid cancer Thyroidectomy and radioactive iodine Surgical History Surgical History H/O aortic valve replacement H/O thyroidectomy History of tonsillectomy Mitral valve replaced Family History Family History Father Brain cancer Mother Diabetes mellitus Dementia Colon cancer Social History Social History Social History: Patient lives with his Julieta. She is his durable power environmental attorney for healthcare. Patient desires to be a full code. Patient quit smoking about 20 years ago. He has 2 boys. He is retired from [employer] No alcohol or illicit drugs. Patient tried marijuana when he was a teenager. Smoking packs per day: 1.5 Smoking cigarettes per day: 30.0 Years smoked: 20 Smoking pack-years: 30.00 Smoking status: Former smoker Tobacco type: cigarettes Second hand tobacco smoke exposure: No Smoking end date: 03/26/95 Additional smoking assessment comments: STATES QUITTING 25+ YEARS AGO Alcohol intake: never Substance use: never Substance use type: does not use Other substance usage details: OCC. MARIJUANA Living arrangements: alone Occupation/Education: retired [employer]
== END 2022-08-20 15:05 | disposition short-term general hospital (02) ==
PROVIDERS: Emergency Provider Nurse Practitioner
DX: R10.84 Generalized abdominal pain (principal); R53.1 Weakness; I11.0 Hypertensive heart disease with heart failure; I50.9 Heart failure, unspecified; E11.9 Type 2 diabetes mellitus without complications; E78.5 Hyperlipidemia, unspecified; E03.9 Hypothyroidism, unspecified; Z79.84 Long term (current) use of oral hypoglycemic drugs; Z79.82 Long term (current) use of aspirin; Z85.850 Personal history of malignant neoplasm of thyroid; Z87.891 Personal history of nicotine dependence
CPT/HCPCS: 82948; 99212; G0463

== ENCOUNTER → 2022-09-14 07:38 | Outpatient (CLI) | payer MEDICARE, SELFPAY ==
--- NOTE | ~2022-09-14 | US_ITS ---
EXAMINATION: US soft tissue abdomen DATE: 09/14/2022 08:16 INDICATION: Left upper quadrant pain and chronic swelling, mass or lump. TECHNIQUE: Multiple grayscale and Doppler ultrasound images of the region of concern along the anteri or abdominal wall the left upper quadrant were obtained. COMPARISON: None FINDINGS: There is a 3.2 x 1.6 x 3.1 cm ovoid mass with smooth margins at the region of concern which is isoech oic and with similar echotexture and internal septated architecture as the surrounding fat most consi stent with a lipoma. On the cine images there appear to be a couple slightly smaller similar-appearin g masses versus potentially lobular extensions of the mass. IMPRESSION: 1. Lobular mass versus a few closely opposed independent masses the largest measuring 2.2 x 1.6 x 3.1 cm with appearance most consistent with and which are statistically most likely to represent a lipom a/lipomas. Reviewed, dictated and finalized at location L. IMPRESSION: 1. Lobular mass versus a few closely opposed independent masses the largest feliciano suring 2.2 x 1.6 x 3.1 cm with appearance most consistent with and which are st atistically most likely to represent a lipoma/lipomas.
== END ==
PROVIDERS: PCP Internal Medicine; Visit Provider Nurse Practitioner Family
DX: R19.02 Left upper quadrant abdominal swelling, mass and lump (principal)
CPT/HCPCS: 76705

== ENCOUNTER 2025-01-29 00:27 | Day surgery (SDC) | payer MEDICARE, SELFPAY ==
[2025-01-19 10:53] VITALS: BMI 23.7
[2025-01-29 09:59] VITALS: BP 110/60; PULSE 64; RESP 18; TEMP 36.1; O2SAT 100; BMI 23.6
[2025-01-29] MEDS: LACTATED RINGERS 1,000 ML 150 ML IV CONT (10:09)
[2025-01-29] MEDS: GENTAMICIN 80MG/SOD CHL 50 ML 80 MG/50 ML BAG 100 MG IVPB (10:17)
--- NOTE | 2025-01-29 10:18 | PM.HPGS ---
History of Present Illness History of Present Illness Consent: Risks, benefits, and alternatives have been discussed and questions answered. Patient agrees to proceed with procedure. Chief complaint: Personal history of colon polyps, unspecified Narrative: Demian Warner is a 74 year old male with colon polyp in 2021 Review of Systems Review of Systems: All systems reviewed & are unremarkable except as noted in HPI and below PMFSH Past Medical History Medical History (Updated 01/29/25 @ 10:19 by Milton Vidal MD) Adenomatous colon polyp Cardiomyopathy CHF (congestive heart failure) DM2 (diabetes mellitus, type 2) Hypothyroidism BPH (benign prostatic hyperplasia) Asthma As a child Hyperlipidemia Hypertension Thyroid cancer Thyroidectomy and radioactive iodine Surgical History Surgical History H/O aortic valve replacement Mitral valve replaced History of tonsillectomy H/O thyroidectomy Family History Family History Father Brain cancer Mother Diabetes mellitus Dementia Colon cancer Social History Social History Social History: Patient lives with his Julieta. She is his durable power transactional attorney for healthcare. Patient desires to be a full code. Patient quit smoking about 20 years ago. He has 2 boys. He is retired from [employer]. No alcohol or illicit drugs. Patient tried marijuana when he was a teenager. Smoking packs per day: 1.5 Smoking cigarettes per day: 30.0 Years smoked: 20 Smoking pack-years: 30.00 Smoking status: Former smoker Tobacco type: cigarettes Second hand tobacco smoke exposure: No Smoking end date: 03/26/95 Additional smoking assessment comments: STATES QUITTING 25+ YEARS AGO Alcohol intake: never Substance use: never Substance use type: does not use Other substance usage details: OCC. MARIJUANA Living arrangements: with family Additional living arrangements comments: with sp Occupation/Education: retired Additional occupation/education comments: For the last 2 years Gender identity (if verbalized by the patient): Male Spiritual care concerns: No Agree to blood products: Yes Meds Home Medications and Allergies Home Medications ?Medication ?Instructions ?Recorded ?Confirmed ?Type metformin 1,000 mg tablet 1,000 mg PO BID 07/01/19 01/29/25 History cholecalciferol (vitamin D3) 5,000 mg BYMOUTH DAILY 11/28/19 01/29/25 History atorvastatin 40 mg tablet 40 mg PO HS 03/25/20 01/29/25 History bumetanide 1 mg tablet 1 mg PO DAILY 03/25/20 01/29/25 History aspirin 81 mg tablet 162 mg PO DAILY 06/21/20 01/29/25 History carvedilol 12.5 mg tablet 12.5 mg PO BID 06/21/20 01/29/25 History levothyroxine 125 mcg capsule 125 mcg PO DAILY 06/21/20 01/29/25 History sacubitril 49 mg-valsartan 51 mg 1 tablet PO BID 06/30/20 01/29/25 History tablet (Entresto) glimepiride 2 mg tablet 4 mg PO BID 01/18/22 01/29/25 History spironolactone 25 mg tablet 25 mg PO DAILY 01/18/22 01/29/25 History empagliflozin 25 mg tablet 25 mg PO DAILY 01/19/25 01/29/25 History (Jardiance) ezetimibe 10 mg tablet 10 mg PO DAILY 01/19/25 01/29/25 History Allergies Allergy/AdvReac Type Severity Reaction Status Date / Time No Known Allergies Allergy Verified 01/19/25 10:46 Vital Signs Vital Signs - 24 hr 01/29/25 09:59 Temperature 97 F L Pulse Rate 64 Respiratory Rate 18 Blood Pressure 110/60 Pulse Oximetry 100 Oxygen Delivery Room Air Exam Const: General: comfortable and no acute distress HENMT: Face/Nose/Sinus: Normal nares present Eyes: General: appearance normal, both eyes and all related structures Neck: Neck: no JVD Resp: Auscultation: clear to auscultation bilaterally Cardio: Rate: regular rate Rhythm: regular rhythm GI: Inspection: non-distended GI Palp: Yes Soft to palpation Skin: General skin exam: normal color Neuro: Speech: normal speech Extrem: General: normal to inspection Psych: Mental Status: mental status grossly normal Assessment and Plan Assessment and plan (1) Adenomatous colon polyp: Code(s): D12.6 - Benign neoplasm of colon, unspecified Status: Acute Assessment and Plan: colonoscopy
--- NOTE | 2025-01-29 10:25 | WPDANESEPPF ---
Anes - Initial Pre Proc Eval Procedure: Operation Date: 01/29/25 11:30 Proposed Procedures p Screening Colonoscopy - Milton Vidal MD Date/Time: 01/29/25 10:25 Surgeon: Milton Vidal MD Pre Op Diagnosis: Personal history of colon polyps, unspecified Patient Data Age: 74 Gender: M Height: 1.8 m Weight: 76.9 kg Last Vital Signs Temp 36.1 C L 01/29/25 09:59 Pulse 64 01/29/25 09:59 Resp 18 01/29/25 09:59 BP 110/60 01/29/25 09:59 Pulse Ox 100 01/29/25 09:59 O2 Del Method Room Air 01/29/25 09:59 Allergies Allergy/AdvReac Type Severity Reaction Status Date / Time No Known Allergies Allergy Verified 01/19/25 10:46 Home Medications ?Medication ?Instructions ?Recorded ?Confirmed ?Type metformin 1,000 mg tablet 1,000 mg PO BID 07/01/19 01/29/25 History cholecalciferol (vitamin D3) 5,000 mg BYMOUTH DAILY 11/28/19 01/29/25 History atorvastatin 40 mg tablet 40 mg PO HS 03/25/20 01/29/25 History bumetanide 1 mg tablet 1 mg PO DAILY 03/25/20 01/29/25 History aspirin 81 mg tablet 162 mg PO DAILY 06/21/20 01/29/25 History carvedilol 12.5 mg tablet 12.5 mg PO BID 06/21/20 01/29/25 History levothyroxine 125 mcg capsule 125 mcg PO DAILY 06/21/20 01/29/25 History sacubitril 49 mg-valsartan 51 mg 1 tablet PO BID 06/30/20 01/29/25 History tablet (Entresto) glimepiride 2 mg tablet 4 mg PO BID 01/18/22 01/29/25 History spironolactone 25 mg tablet 25 mg PO DAILY 01/18/22 01/29/25 History empagliflozin 25 mg tablet 25 mg PO DAILY 01/19/25 01/29/25 History (Jardiance) ezetimibe 10 mg tablet 10 mg PO DAILY 01/19/25 01/29/25 History Patient hx anesthesia problems: none Family hx anesthesia problems: none Results Review: All pre-operative results and documents have been reviewed as part of the pre-operative evaluation. [facility] Past Medical History Medical History (Updated 01/29/25 @ 10:26 by Bryce Griffin MD) Cardiac defibrillator in situ Adenomatous colon polyp Cardiomyopathy CHF (congestive heart failure) DM2 (diabetes mellitus, type 2) Hypothyroidism BPH (benign prostatic hyperplasia) Asthma As a child Hyperlipidemia Hypertension Thyroid cancer Thyroidectomy and radioactive iodine Surgical History Surgical History H/O aortic valve replacement Mitral valve replaced History of tonsillectomy H/O thyroidectomy Family History Family History Father Brain cancer Mother Diabetes mellitus Dementia Colon cancer Social History Social History Social History: Patient lives with his Julieta. She is his durable power patent attorney for healthcare. Patient desires to be a full code. Patient quit smoking about 20 years ago. He has 2 boys. He is retired from [employer]. No alcohol or illicit drugs. Patient tried marijuana when he was a teenager. Smoking packs per day: 1.5 Smoking cigarettes per day: 30.0 Years smoked: 20 Smoking pack-years: 30.00 Smoking status: Former smoker Tobacco type: cigarettes Second hand tobacco smoke exposure: No Smoking end date: 03/26/95 Additional smoking assessment comments: STATES QUITTING 25+ YEARS AGO Alcohol intake: never Substance use: never Substance use type: does not use Other substance usage details: OCC. MARIJUANA Living arrangements: with family Additional living arrangements comments: with sp Occupation/Education: retired Additional occupation/education comments: For the last 2 years Gender identity (if verbalized by the patient): Male Spiritual care concerns: No Agree to blood products: Yes Anes - Eval Final PreProcedure Day of Procedure 01/29/25 10:25 Patient weight: normal Heart: regular rate and rhythm Lungs: clear to auscultation Airway: Mallampati scale class II Neurological: alert and oriented Last oral intake: >/= 8 hours ASA classification: III Emergent: no Anesthetic plan: proceed Anesthesia type and monitoring: general GIVS and standard monitoring Results Review: All pre-operative results and documents have been reviewed as part of the pre-operative evaluation. Informed Consent: The patient's anesthetic plan and its attendant risks and benefits were discussed with the patient/family/POA. Questions were solicited and answers provided to the satisfaction of the patient/family/POA.
--- NOTE | 2025-01-29 10:30 | SUR.OPER ---
Patient receiving antibiotics due to valve replacement. Anesthesia noted that the valve replacement was not metal. Discussed with Dr. Friedman and he stated we can infuse the gentamycin, but we can cancel the order for the ampicillin.
--- NOTE | 2025-01-29 10:39 | S_PTH ---
PATIENT: Demian Warner LOC: [facility]#:[id number] AGE/SX: 74/M ROOM: RE01/29/[address]: Milton Vidal MD : 1950 BED: DIS: 01/29/2025 SPEC #: [id number] RECD: 01/29/25 11:37 STATUS: LAILA REQ #: [id number] KATELYNN: 01/29/25 10:[address]: Milton Vidal DEPT: [facility] Surgical RECD BY: Niharika Gramajo ENTERED: 01/29/25 11:38 SP TYPE: Surgical OTHR DR: Kartik SteinerMD Tissues: A - Colon Polypectomy Procedures: Hematoxylin and Eosin Stain Gross and Microscopic Level 4
[2025-01-29 10:40] VITALS: BP 81/60; PULSE 64; RESP 17; O2SAT 98
[2025-01-29 10:50] VITALS: BP 88/50; PULSE 60; RESP 10; O2SAT 99
[2025-01-29 11:00] VITALS: BP 98/53; PULSE 60; RESP 17; O2SAT 100
[2025-01-29 11:10] VITALS: BP 103/59; PULSE 60; RESP 14; O2SAT 100
== END 2025-01-29 11:19 | disposition home or self-care (01) ==
PROVIDERS: PCP Internal Medicine; Referring Provider Internal Medicine; Visit Provider Internal Medicine Gastroenterology
PROC: 0DJD8ZZ Inspection of Lower Intestinal Tract, Via Natural or Artificial Opening Endoscopic (ICD-10-PCS; CPT 45378; principal; 2025-01-29 11:30)
DX: Z12.11 Encounter for screening for malignant neoplasm of colon (principal); D12.3 Benign neoplasm of transverse colon; K57.30 Diverticulosis of large intestine without perforation or abscess without bleeding; K64.8 Other hemorrhoids; Z98.0 Intestinal bypass and anastomosis status; Z90.49 Acquired absence of other specified parts of digestive tract; E11.9 Type 2 diabetes mellitus without complications
CPT/HCPCS: 45385; 82948; 88305; J0290; J1580; J2003; J2371; J2704; J7120